=== PATIENT | female | born 1950 | race Caucasian/White ===

== ENCOUNTER 2020-12-10 10:19 | Emergency (ER) | payer MEDICARE, MEDICAID, SELFPAY ==
[2020-12-10 10:28] VITALS: BP 161/112; PULSE 80; RESP 20; TEMP 36.8; O2SAT 96
[2020-12-10 11:01] LABS: Hematocrit 45.8 % (37.0-47.0); Lymphocytes # 1.1 10^3/uL (0.8-4.8); Lymphocytes % 15.3 %; Mean Corpuscular HGB Conc 30.6 g/dL (30.0-36.0); Mean Corpuscular Hemoglobin 29.3 pg (28.0-34.0); Mean Corpuscular Volume 95.8 fL (81-99); Mean Platelet Volume 10.9 fL (7.4-10.4); Monocytes # 0.6 10^3/uL (0.2-0.9); Monocytes % 7.9 %; Neutrophils # 5.44 10^3/uL (1.8-7.7); Neutrophils % 76.4 %; Nucleated Red Blood Cells % 0 %; Platelet Count 203 10^3/cmm (130-400); Red Blood Count 4.78 10^6/uL (4.1-5.3); Red Cell Distribution Width 14.5 % (12.1-15.1); White Blood Count 7.1 10^3/uL (4.0-10.0)
--- NOTE | 2020-12-10 11:25 | ED_ITS ---
Documented by User: Paul Avila DO 12/11/20 09:13 HPI - Psych General: Chief Complaint: Psychiatric Symptoms Stated Complaint: SI, PSYCH EVAL Time Seen by Provider: 12/10/20 10:22 History of Present Illness: HPI Narrative: 69-year-old [facility] Nursing staff stated that she has been depressed and made suicidal ideation statements today. She denies any suicidal homicidal ideation. She is not happy with where she is living. She is extremely anxious. She has been very depressed she states she has been on several different medications recently was started on Effexor but does not feel has been very helpful. She has not previously had admissions for suicidal ideation. MD complaint: feels depressed Onset (ago): unknown Duration: constant History of same: Yes Relieving factors: none Exacerbating factors: none Associated psychiatric symptoms: depression Associated symptoms: Reports depression; Deny auditory hallucinations, visual hallucinations, delusions, homicidal ideation, suicidal ideation or racing thoughts Treatments prior to arrival: none Review of Systems Const: Denies: fever(s), chills, body aches, change in appetite, fatigue or malaise ENMT: Denies: throat pain, ear or mastoid pain, nasal discharge or nasal congestion Card: Denies: chest pain, edema, dyspnea on exertion or orthopnea Resp: Denies: dyspnea, productive cough or non-productive cough GI: Denies: abdominal pain, nausea, vomiting, hematemesis, coffee ground emesis, diarrhea, constipation, bloating, hematochezia or melena : Denies: flank pain, difficulty voiding, dysuria, urinary frequency or urinary urgency Skin/Breast: Denies: rash or pruritus Psych: Reports: depression; Denies: visual hallucinations, auditory hallucinations, suicidal ideation or homicidal ideation PFS ED PFSH: Family History Mother Hypertension Social History Smoking and tobacco status: never smoked Alcohol intake: never Marital status: Physical Exam Const: COMMON NORMALS: no acute distress GENERAL APPEARANCE: cooperative and comfortable HENMT: COMMON NORMALS: normocephalic, atraumatic and hearing grossly normal bilaterally HEAD & SCALP: normocephalic and atraumatic Neck/C-Spine: COMMON NORMALS: no JVD Resp: COMMON NORMALS: normal respiratory effort, No retractions, No use of accessory muscles and clear to auscultation bilaterally AUSCULTATION: clear to auscultation bilaterally Cardio: COMMON NORMALS: no JVD, regular rate, regular rhythm and No murmurs present (Cardio) RATE: regular rate RHYTHM: regular rhythm GI: COMMON NORMALS: Soft to palpation and No hepatosplenomegaly present AUSCULTATION: Yes normoactive bowel sounds PALPATION: Yes Soft to palpation, No Tenderness to palpation present (GI), No Guarding due to palpation present (GI) and Yes No hepatosplenomegaly present Extremity: COMMON NORMALS: normal to inspection, capillary refill normal and no calf tenderness Psych: THOUGHT CONTENT: No delusions Skin: COMMON NORMALS: no rashes or lesions noted GENERAL SKIN EXAM: no rashes or lesions noted Course Vital Signs: Vital signs: Vital Signs Temperature 98.3 F 12/10/20 10:28 Pulse Rate 84 12/10/20 21:31 Respiratory Rate 18 12/10/20 21:31 Blood Pressure 162/98 12/10/20 21:31 Pulse Oximetry 95 12/10/20 21:31 MDM - Psych MDM Narrative: Medical decision making narrative: Awaiting consult from on- call psychiatry. We tried multiple geriatric psych facilities are refusing because she is bedbound and full care. Dr. Gastelum will be coming down to see her and will discharge per his recommendations care turned over to Dr. Andrade at change of see his notes from diagnosis disposition Lab Data: Labs: Lab Results 12/10/20 12/10/20 12/10/20 Range/Units 10:55 10:55 11:35 WBC 7.1 (4.0-10.0) 10^3/ uL RBC 4.78 (4.1-5.3) 10^6/u L Hgb 14.0 (11.5-15.3) g/dL Hct 45.8 (37.0-47.0) % MCV 95.8 (81-99) fL MCH 29.3 (28.0-34.0) pg MCHC 30.6 (30.0-36.0) g/dL RDW 14.5 (12.1-15.1) % Plt Count 203 (130-400) 10^3/c mm MPV 10.9 H (7.4-10.4) fL Neut % (Auto) 76.4 % Lymph % (Auto) 15.3 % Haakon % (Auto) 7.9 % Eos % (Auto) 0.0 % Baso % (Auto) 0.0 % Neut # (Auto) 5.44 (1.8-7.7) 10^3/u L Lymph # (Auto) 1.1 (0.8-4.8) 10^3/u L Haakon # (Auto) 0.6 (0.2-0.9) 10^3/u L Eos # (Auto) 0.0 (0.0-0.8) 10^3/u L Baso # (Auto) 0.0 (0.0-0.1) 10^3/u L Nucleated RBC % (a uto) 0 % Nucleated RBCs # 0.0 /100WBC Sodium 143 (136-145) mmol/L Potassium 4.0 (3.5-5.1) mmol/L Chloride 105 (98-107) mmol/L Carbon Dioxide 27 (22-29) mmol/L Anion Gap 15.0 (5-19) BUN 12 (8-23) mg/dL Creatinine 0.7 (0.5-0.9) mg/dL GFR Calculation Not Reportable Glucose 138 H (65-115) mg/dL Calculated Osmolal ity 298 H (285-295) mOsm/k g Calcium 8.9 (8.5-10.5) mg/dL Total Bilirubin 0.4 (0.15-1.2) mg/dL AST 25 (0-32) U/L ALT 43 H (0-33) U/L Alkaline Phosphata se 149 H (35-105) IU/L Total Protein 6.8 (6.6-8.7) g/dL Albumin 4.1 (3.5-5.2) g/dL Globulin 2.7 (1.3-4.6) g/dL TSH 0.30 (0.27-4.20) uIU/ mL Urine Color Straw (Yellow) Urine Appearance Clear (CLEAR) Urine pH 6 (5-7) Ur Specific Gravit y 1.010 (1.005-1.030) Urine Protein Neg (Negative) Urine Glucose (UA) Norm (Normal) Urine Ketones Negative (Negative) Urine Blood Neg (Negative) Urine Nitrate Positive H (Negative) Urine Bilirubin Neg (Negative) Urine Urobilinogen Norm (Negative) mg/dL Ur Leukocyte Sonia ase Negative (Negative) Urine RBC None (0-2) /hpf Urine WBC 0-4 H (0-5) /hpf Ur Squamous Epith Cells None (0-5) /hpf Amorphous Sediment Not Reportable Urine Bacteria 4+ H (NONE) /hpf Salicylates < 0.3 L (3-10) mg/dL Urine Opiates Scre en (Negative) ng/mL Acetaminophen 5.9 L (10-30) ug/mL Ur Barbiturates Sc reen (Negative) ng/mL Ur Phencyclidine S crn (Negative) ng/mL Ur Amphetamines Sc reen (Negative) ng/mL U Benzodiazepines Scrn (Negative) ng/mL Urine Cocaine Scre en (Negative) ng/mL U Marijuana (THC) Screen (Negative) ng/mL Ethyl Alcohol < 10 (0-10) mg/dL SARS-CoV-2 Ag (Rap id) (Negative) 12/10/20 12/10/20 Range/Units 11:35 13:41 WBC (4.0-10.0) 10^3/ uL RBC (4.1-5.3) 10^6/u L Hgb (11.5-15.3) g/dL Hct (37.0-47.0) % MCV (81-99) fL MCH (28.0-34.0) pg MCHC (30.0-36.0) g/dL RDW (12.1-15.1) % Plt Count (130-400) 10^3/c mm MPV (7.4-10.4) fL Neut % (Auto) % Lymph % (Auto) % Haakon % (Auto) % Eos % (Auto) % Baso % (Auto) % Neut # (Auto) (1.8-7.7) 10^3/u L Lymph # (Auto) (0.8-4.8) 10^3/u L Haakon # (Auto) (0.2-0.9) 10^3/u L Eos # (Auto) (0.0-0.8) 10^3/u L Baso # (Auto) (0.0-0.1) 10^3/u L Nucleated RBC % (a uto) % Nucleated RBCs # /100WBC Sodium (136-145) mmol/L Potassium (3.5-5.1) mmol/L Chloride (98-107) mmol/L Carbon Dioxide (22-29) mmol/L Anion Gap (5-19) BUN (8-23) mg/dL Creatinine (0.5-0.9) mg/dL GFR Calculation Glucose (65-115) mg/dL Calculated Osmolal ity (285-295) mOsm/k g Calcium (8.5-10.5) mg/dL Total Bilirubin (0.15-1.2) mg/dL AST (0-32) U/L ALT (0-33) U/L Alkaline Phosphata se (35-105) IU/L Total Protein (6.6-8.7) g/dL Albumin (3.5-5.2) g/dL Globulin (1.3-4.6) g/dL TSH (0.27-4.20) uIU/ mL Urine Color (Yellow) Urine Appearance (CLEAR) Urine pH (5-7) Ur Specific Gravit y (1.005-1.030) Urine Protein (Negative) Urine Glucose (UA) (Normal) Urine Ketones (Negative) Urine Blood (Negative) Urine Nitrate (Negative) Urine Bilirubin (Negative) Urine Urobilinogen (Negative) mg/dL Ur Leukocyte Sonia ase (Negative) Urine RBC (0-2) /hpf Urine WBC (0-5) /hpf Ur Squamous Epith Cells (0-5) /hpf Amorphous Sediment Urine Bacteria (NONE) /hpf Salicylates (3-10) mg/dL Urine Opiates Scre en Negative (Negative) ng/mL Acetaminophen (10-30) ug/mL Ur Barbiturates Sc reen Negative (Negative) ng/mL Ur Phencyclidine S crn Negative (Negative) ng/mL Ur Amphetamines Sc reen Negative (Negative) ng/mL U Benzodiazepines Scrn Negative (Negative) ng/mL Urine Cocaine Scre en Negative (Negative) ng/mL U Marijuana (THC) Screen Negative (Negative) ng/mL Ethyl Alcohol (0-10) mg/dL SARS-CoV-2 Ag (Rap id) Negative (Negative) Discharge Plan Discharge Patient Disposition: Home Clinical Impression: Depression Qualifiers: Depression Type: unspecified Qualified Code(s): F32.9 - Major depressive disorder, single episode, unspecified Acute cystitis Qualifiers: Hematuria presence: without hematuria Qualified Code(s): N30.00 - Acute cystitis without hematuria Condition: Stable Prescriptions: New Remeron 15 mg tablet 15 mg PO DAILY Qty: 60 RF: 0 cephalexin 500 mg capsule 500 mg PO TID 7 Days Qty: 21 RF: 0 Discontinued risperidone 1 mg Tablet 1 mg PO BEDTIME RF: 0 No Action Lasix 40 mg Tablet 40 mg PO DAILY RF: 0 acetaminophen 325 mg Tablet 325 mg PO Q4H PRN (Reason: Pain) RF: 0 triamcinolone acetonide 0.5 % Cream 1 applic TOPICAL BID PRN (Reason: redness) RF: 0 nystatin 100,000 unit/gram Ointment 1 applic TOPICAL Q4H PRN (Reason: redness) RF: 0 Zofran 4 mg Tablet 4 mg PO Q8H PRN (Reason: Nausea) RF: 0 Senna-S 8.6-50 mg Tablet 1 tab-cap PO BID PRN (Reason: Constipation) RF: 0 Effexor XR 150 mg Capsule,Extended Release 24hr 300 mg PO DAILY RF: 0 tramadol 50 mg Tablet 50 mg PO TID PRN (Reason: Pain) RF: 0 Milk of Magnesia 400 mg/5 mL Suspension 30 ml PO DAILY PRN (Reason: Constipation) RF: 0 calcium carbonate 160 mg calcium (400 mg) Tablet,Chewable 320 mg PO Q4H PRN (Reason: Indigestion) RF: 0 docusate sodium 100 mg Capsule 100 mg PO BID RF: 0 Colace 100 mg Capsule 100 mg PO BID PRN (Reason: Constipation) RF: 0 gabapentin 300 mg Capsule 300 mg PO TID RF: 0 levothyroxine 200 mcg Tablet 200 mcg PO DAILY RF: 0 Miralax 17 gram/dose Powder 17 g PO BID RF: 0 loratadine 10 mg Tablet 10 mg PO DAILY RF: 0 Artificial Tears (glycerin) Drops 1 drp OPHTHALMIC (EYE) Q4H PRN (Reason: Eye Irritation) RF: 0 Biofreeze 0.2-3.5 % Gel 1 applic TOPICAL Q8H PRN (Reason: Pain) RF: 0 potassium chloride 20 mEq Tablet Extended Release 20 meq PO DAILY RF: 0 Discharge Orders: Discharge ED (Routine); Ordered 12/10/20 Ordered By: Everett Andrade Discharge Diet: Advance as tolerated Discharge Activity: Resume usual activity Patient Instructions: Depression (ED) Coding Level of Care Code ED Integration Lead for Chg Fwd Exam Comprehensive Documented by User: Everett Andrade MD 12/10/20 20:43 HPI - Psych General: Chief Complaint: Psychiatric Symptoms Stated Complaint: SI, PSYCH EVAL Time Seen by Provider: 12/10/20 10:22 PFSH ED PFSH: Family History Mother Hypertension Social History Smoking and tobacco status: never smoked Alcohol intake: never Marital status: Course Vital Signs: Vital signs: Vital Signs Temperature 98.3 F 12/10/20 10:28 Pulse Rate 84 12/10/20 21:31 Respiratory Rate 18 12/10/20 21:31 Blood Pressure 162/98 12/10/20 21:31 Pulse Oximetry 95 12/10/20 21:31 MDM - Psych MDM Narrative: Medical decision making narrative: Patient presents here with depression. Patient was seen by psychiatrist Dr. Gastelum he does not believe that patient requires inpatient admissions and believe she is safe for discharge. I agree with this as well. He recommended to add Remeron and stop her Risperdal. Patient also has urinary tract infection we will place her on Keflex. She is to follow-up with PCP and will [facility] back to [facility]. She is to return if worsening. Lab Data: Labs: Lab Results 12/10/20 12/10/20 12/10/20 Range/Units 10:55 10:55 11:35 WBC 7.1 (4.0-10.0) 10^3/ uL RBC 4.78 (4.1-5.3) 10^6/u L Hgb 14.0 (11.5-15.3) g/dL Hct 45.8 (37.0-47.0) % MCV 95.8 (81-99) fL MCH 29.3 (28.0-34.0) pg MCHC 30.6 (30.0-36.0) g/dL RDW 14.5 (12.1-15.1) % Plt Count 203 (130-400) 10^3/c mm MPV 10.9 H (7.4-10.4) fL Neut % (Auto) 76.4 % Lymph % (Auto) 15.3 % Haakon % (Auto) 7.9 % Eos % (Auto) 0.0 % Baso % (Auto) 0.0 % Neut # (Auto) 5.44 (1.8-7.7) 10^3/u L Lymph # (Auto) 1.1 (0.8-4.8) 10^3/u L Haakon # (Auto) 0.6 (0.2-0.9) 10^3/u L Eos # (Auto) 0.0 (0.0-0.8) 10^3/u L Baso # (Auto) 0.0 (0.0-0.1) 10^3/u L Nucleated RBC % (a uto) 0 % Nucleated RBCs # 0.0 /100WBC Sodium 143 (136-145) mmol/L Potassium 4.0 (3.5-5.1) mmol/L Chloride 105 (98-107) mmol/L Carbon Dioxide 27 (22-29) mmol/L Anion Gap 15.0 (5-19) BUN 12 (8-23) mg/dL Creatinine 0.7 (0.5-0.9) mg/dL GFR Calculation Not Reportable Glucose 138 H (65-115) mg/dL Calculated Osmolal ity 298 H (285-295) mOsm/k g Calcium 8.9 (8.5-10.5) mg/dL Total Bilirubin 0.4 (0.15-1.2) mg/dL AST 25 (0-32) U/L ALT 43 H (0-33) U/L Alkaline Phosphata se 149 H (35-105) IU/L Total Protein 6.8 (6.6-8.7) g/dL Albumin 4.1 (3.5-5.2) g/dL Globulin 2.7 (1.3-4.6) g/dL TSH 0.30 (0.27-4.20) uIU/ mL Urine Color Straw (Yellow) Urine Appearance Clear (CLEAR) Urine pH 6 (5-7) Ur Specific Gravit y 1.010 (1.005-1.030) Urine Protein Neg (Negative) Urine Glucose (UA) Norm (Normal) Urine Ketones Negative (Negative) Urine Blood Neg (Negative) Urine Nitrate Positive H (Negative) Urine Bilirubin Neg (Negative) Urine Urobilinogen Norm (Negative) mg/dL Ur Leukocyte Sonia ase Negative (Negative) Urine RBC None (0-2) /hpf Urine WBC 0-4 H (0-5) /hpf Ur Squamous Epith Cells None (0-5) /hpf Amorphous Sediment Not Reportable Urine Bacteria 4+ H (NONE) /hpf Salicylates < 0.3 L (3-10) mg/dL Urine Opiates Scre en (Negative) ng/mL Acetaminophen 5.9 L (10-30) ug/mL Ur Barbiturates Sc reen (Negative) ng/mL Ur Phencyclidine S crn (Negative) ng/mL Ur Amphetamines Sc reen (Negative) ng/mL U Benzodiazepines Scrn (Negative) ng/mL Urine Cocaine Scre en (Negative) ng/mL U Marijuana (THC) Screen (Negative) ng/mL Ethyl Alcohol < 10 (0-10) mg/dL SARS-CoV-2 Ag (Rap id) (Negative) 12/10/20 12/10/20 Range/Units 11:35 13:41 WBC (4.0-10.0) 10^3/ uL RBC (4.1-5.3) 10^6/u L Hgb (11.5-15.3) g/dL Hct (37.0-47.0) % MCV (81-99) fL MCH (28.0-34.0) pg MCHC (30.0-36.0) g/dL RDW (12.1-15.1) % Plt Count (130-400) 10^3/c mm MPV (7.4-10.4) fL Neut % (Auto) % Lymph % (Auto) % Haakon % (Auto) % Eos % (Auto) % Baso % (Auto) % Neut # (Auto) (1.8-7.7) 10^3/u L Lymph # (Auto) (0.8-4.8) 10^3/u L Haakon # (Auto) (0.2-0.9) 10^3/u L Eos # (Auto) (0.0-0.8) 10^3/u L Baso # (Auto) (0.0-0.1) 10^3/u L Nucleated RBC % (a uto) % Nucleated RBCs # /100WBC Sodium (136-145) mmol/L Potassium (3.5-5.1) mmol/L Chloride (98-107) mmol/L Carbon Dioxide (22-29) mmol/L Anion Gap (5-19) BUN (8-23) mg/dL Creatinine (0.5-0.9) mg/dL GFR Calculation Glucose (65-115) mg/dL Calculated Osmolal ity (285-295) mOsm/k g Calcium (8.5-10.5) mg/dL Total Bilirubin (0.15-1.2) mg/dL AST (0-32) U/L ALT (0-33) U/L Alkaline Phosphata se (35-105) IU/L Total Protein (6.6-8.7) g/dL Albumin (3.5-5.2) g/dL Globulin (1.3-4.6) g/dL TSH (0.27-4.20) uIU/ mL Urine Color (Yellow) Urine Appearance (CLEAR) Urine pH (5-7) Ur Specific Gravit y (1.005-1.030) Urine Protein (Negative) Urine Glucose (UA) (Normal) Urine Ketones (Negative) Urine Blood (Negative) Urine Nitrate (Negative) Urine Bilirubin (Negative) Urine Urobilinogen (Negative) mg/dL Ur Leukocyte Sonia ase (Negative) Urine RBC (0-2) /hpf Urine WBC (0-5) /hpf Ur Squamous Epith Cells (0-5) /hpf Amorphous Sediment Urine Bacteria (NONE) /hpf Salicylates (3-10) mg/dL Urine Opiates Scre en Negative (Negative) ng/mL Acetaminophen (10-30) ug/mL Ur Barbiturates Sc reen Negative (Negative) ng/mL Ur Phencyclidine S crn Negative (Negative) ng/mL Ur Amphetamines Sc reen Negative (Negative) ng/mL U Benzodiazepines Scrn Negative (Negative) ng/mL Urine Cocaine Scre en Negative (Negative) ng/mL U Marijuana (THC) Screen Negative (Negative) ng/mL Ethyl Alcohol (0-10) mg/dL SARS-CoV-2 Ag (Rap id) Negative (Negative) Discharge Plan Discharge Patient Disposition: Home Clinical Impression: Depression Qualifiers: Depression Type: unspecified Qualified Code(s): F32.9 - Major depressive disorder, single episode, unspecified Acute cystitis Qualifiers: Hematuria presence: without hematuria Qualified Code(s): N30.00 - Acute cystitis without hematuria Condition: Stable Prescriptions: New Remeron 15 mg tablet 15 mg PO DAILY Qty: 60 RF: 0 cephalexin 500 mg capsule 500 mg PO TID 7 Days Qty: 21 RF: 0 Discontinued risperidone 1 mg Tablet 1 mg PO BEDTIME RF: 0 No Action Lasix 40 mg Tablet 40 mg PO DAILY RF: 0 acetaminophen 325 mg Tablet 325 mg PO Q4H PRN (Reason: Pain) RF: 0 triamcinolone acetonide 0.5 % Cream 1 applic TOPICAL BID PRN (Reason: redness) RF: 0 nystatin 100,000 unit/gram Ointment 1 applic TOPICAL Q4H PRN (Reason: redness) RF: 0 Zofran 4 mg Tablet 4 mg PO Q8H PRN (Reason: Nausea) RF: 0 Senna-S 8.6-50 mg Tablet 1 tab-cap PO BID PRN (Reason: Constipation) RF: 0 Effexor XR 150 mg Capsule,Extended Release 24hr 300 mg PO DAILY RF: 0 tramadol 50 mg Tablet 50 mg PO TID PRN (Reason: Pain) RF: 0 Milk of Magnesia 400 mg/5 mL Suspension 30 ml PO DAILY PRN (Reason: Constipation) RF: 0 calcium carbonate 160 mg calcium (400 mg) Tablet,Chewable 320 mg PO Q4H PRN (Reason: Indigestion) RF: 0 docusate sodium 100 mg Capsule 100 mg PO BID RF: 0 Colace 100 mg Capsule 100 mg PO BID PRN (Reason: Constipation) RF: 0 gabapentin 300 mg Capsule 300 mg PO TID RF: 0 levothyroxine 200 mcg Tablet 200 mcg PO DAILY RF: 0 Miralax 17 gram/dose Powder 17 g PO BID RF: 0 loratadine 10 mg Tablet 10 mg PO DAILY RF: 0 Artificial Tears (glycerin) Drops 1 drp OPHTHALMIC (EYE) Q4H PRN (Reason: Eye Irritation) RF: 0 Biofreeze 0.2-3.5 % Gel 1 applic TOPICAL Q8H PRN (Reason: Pain) RF: 0 potassium chloride 20 mEq Tablet Extended Release 20 meq PO DAILY RF: 0 Discharge Orders: Discharge ED (Routine); Ordered 12/10/20 Ordered By: Everett Andrade Discharge Diet: Advance as tolerated Discharge Activity: Resume usual activity Patient Instructions: Depression (ED) Coding Level of Care Code ED Integration Lead for Consuelo Fwandrey Exam Comprehensive
[2020-12-10 11:34] LABS: Acetaminophen 5.9 ug/mL (10-30); Alanine Aminotransferase 43 U/L (0-33); Albumin Level 4.1 g/dL (3.5-5.2); Alkaline Phosphatase 149 IU/L (35-105); Blood Urea Nitrogen 12 mg/dL (8-23); Calcium 8.9 mg/dL (8.5-10.5); Carbon Dioxide 27 mmol/L (22-29); Chloride 105 mmol/L (98-107); Globulin 2.7 g/dL (1.3-4.6); Glucose 138 mg/dL (65-115); Osmolality Calculated 298 mOsm/kg (285-295); Sodium 143 mmol/L (136-145); Total Bilirubin 0.4 mg/dL (0.15-1.2); Total Protein 6.8 g/dL (6.6-8.7)
[2020-12-10] MEDS: LORazepam 2 mg/mL INJ 1 mL 1 MG IVP (11:36)
[2020-12-10 11:38] LABS: Alcohol Level < 10 mg/dL (0-10); Salicylate < 0.3 mg/dL (3-10)
[2020-12-10 11:39] LABS: Aspartate Amino Transferase 25 U/L (0-32)
[2020-12-10 12:03] LABS: Add Urine Microscopic? YES; Bilirubin Urine Neg (Negative); Blood Urine Neg (Negative); Glucose Urine UA Norm (Normal); Ketones Urine Negative (Negative); Leukocyte Esterase Urine Negative (Negative); Nitrate Urine Positive (Negative); Protein Urine Neg (Negative); Urine Appearance Clear (CLEAR); Urine Color Straw (Yellow); Urobilinogen Urine Norm (Negative); WBC Urine 0-4 /hpf (0-5); pH Urine 6 (5-7)
[2020-12-10 12:04] LABS: Add Urine Culture? Yes; Bacteria Urine 4+ /hpf
[2020-12-10 12:07] LABS: Amphetamines Screen Urine Negative (Negative); Barbiturates Screen Urine Negative (Negative); Benzodiazepines Screen Urine Negative (Negative); Cocaine Screen Urine Negative (Negative); Opiate Screen Urine Negative (Negative); PCP Screen Urine Negative (Negative); THC Screen Urine Negative (Negative)
[2020-12-10 13:02] VITALS: RESP 15
--- NOTE | 2020-12-10 13:13 | ECG_ITS ---
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 Measurements Intervals [place] Rate: 74 P: 47 TN: 183 QRS: 27 QRSD: 89 T: 54 QT: 386 QTc: 429 Interpretive Statements SINUS RHYTHM Compared to ECG 03/27/2019 19:21:34 Intraventricular conduction delay no longer present T-wave abnormality no longer present Electronically Signed On 12-13-2020 9:55:02 CDT by Janet Powers M.D. [id number]
--- NOTE | 2020-12-10 13:14 | XRR_ITS ---
PROCEDURE INFORMATION: Exam: XR Chest Exam date and time: 12/10/2020 1:14 PM Age: 69 years old Clinical indication: Cough and dyspnea; Additional info: Dyspnea/cough TECHNIQUE: Imaging protocol: XR of the chest. Views: 1 view. COMPARISON: CR Chest 1 [place] [id number] 03/27/2019 7:32 PM FINDINGS: Lungs: Interstitial prominence and chronic granulomatous disease. Pleural spaces: No significant pleural effusion. Heart/Mediastinum: No cardiomegaly. Vasculature: Ectasia of the thoracic aorta. Bones/joints: Osteopenia and degenerative change. When correlating with the previous study, no significant interval changes are present. XR/XR chest 1V portable [id number] IMPRESSION: Stable appearance of the chest, not significantly changed from 03/27/19.
[2020-12-10 14:34] LABS: SARS Covid-2 Antigen Negative (Negative)
[2020-12-10 16:19] VITALS: RESP 15
[2020-12-10 16:34] VITALS: BP 178/124; PULSE 88; RESP 18; O2SAT 95
[2020-12-10] MEDS: acetaminophen 500 mg Tablet 1000 MG PO (17:32)
[2020-12-10] MEDS: LORazepam 2 mg/mL INJ 1 mL 1 MG IM (18:42)
--- NOTE | 2020-12-10 19:07 | PC.NURSE ---
Report from DUSTY Campo
[2020-12-10 20:32] VITALS: BP 160/94; PULSE 85; RESP 18; O2SAT 93
[2020-12-10 21:31] VITALS: BP 162/98; PULSE 84; RESP 18; O2SAT 95
--- NOTE | 2020-12-11 00:34 | P.CONIM_ITS ---
Providers/Reason for Consult Consulting Physican/Specialty*: Lane Gastelum MD, psychiatry Reason for Consult*: Depression, disposition Psych Consult HPI History of Present Illness Fely Matta is a 69 year old female who presented to the [facility] ED with complaints of depression and suicidal ideation. The ED note states: 69-year-old female [facility]. Nursing staff stated that she has been depressed and made suicidal ideation statements today. She denies any suicidal homicidal ideation. She is not happy with where she is living. She is extremely anxious. She has been very depressed she states she has been on several different medications recently was started on Effexor but does not feel has been very helpful. She has not previously had admissions for suicidal ideation. The patient agrees that she has been depressed in the past, but does not feel so depressed now or into the future. She feels she can be safe at the nursing facility. She has no urges to kill her self or anyone else. She is able to contract to stay safe. PFS NPU PFSH: Surgical History (Updated 12/22/20 @ 00:[address]astelum MD) Status post total left knee replacement Family History Mother Hypertension Social History Smoking and tobacco status: never smoked Alcohol intake: never Marital status: Mental Status Exam MSE Comments: This pleasant lady has been suffering with depression, and wonders who will provide her care. Currently the nursing facility provides 24/7 support. She is calm, cooperative, alert, attentive, and in a pretty good mood. Speech is at a regular rate and rhythm without pressure. No abnormal movements noted. Mood is down, but improved; her yells frequently. No problems with thought organization. Insight and judgment are limited by drug use. Vitals/I&O/Wt Last Vital Signs Temp 98.3 F 12/10/20 10:28 Pulse 84 12/10/20 21:31 Resp 18 12/10/20 21:31 BP 162/98 12/10/20 21:31 Pulse Ox 95 12/10/20 21:31 Physical Exam Urinary Catheter Management^: Vanegas: Cath Placed During This Visit: yes Urinary Catheter Date of Insertion: 12/10/20 Urinary Catheter Time of Insertion: 11:43 A&P Assessment and plan (1) Major depression, recurrent, chronic: Status: Acute (2) Methamphetamine abuse: Status: Acute Additional A&P Information No additional information at this time? Attestations NPU Medical Necessity Statement*: Hospitalist will complete the medical necessity evaluation. Coding Level of Care Code Acute Tack Maker for Consuelo Tobin Diagnoses Major depression, recurrent, chronic F33.9 Methamphetamine abuse F15.10
== END 2020-12-10 21:55 | disposition home or self-care (01) ==
PROVIDERS: Family Medicine; Emergency Provider Emergency Medicine
DX: F32.9 Major depressive disorder, single episode, unspecified (principal); N30.00 Acute cystitis without hematuria; Z20.822 Contact with and (suspected) exposure to COVID-19
CPT/HCPCS: 51702; 71045; 80053; 80306; 80307; 81001; 84443; 85025; 87077; 87086; 87186; 87426; 93005; 96365; 96372; 96375; 99284; J2060

== ENCOUNTER 2021-02-01 20:21 | Emergency (ER) | payer MEDICARE, MEDICAID, SELFPAY ==
[2021-02-01 20:28] VITALS: BP 156/95; PULSE 81; RESP 20; TEMP 36.9; O2SAT 95; BMI 56.7
--- NOTE | 2021-02-01 20:36 | CTR_ITS ---
PROCEDURE INFORMATION: Exam: CT Abdomen And Pelvis With Contrast Exam date and time: 02/01/2021 8:36 PM Age: 70 years old Clinical indication: Constipation and nausea; Abdominal pain; Generalized; Prior surgery; Surgery type: Tubal; Additional info: Rule out infection TECHNIQUE: Imaging protocol: Computed tomography of the abdomen and pelvis with contrast. Radiation optimization: All CT scans at this facility use at least one of these dose optimization techniques: automated exposure control; mA and/or kV adjustment per patient size (includes targeted exams where dose is matched to clinical indication); or iterative reconstruction. Contrast material: OMNI 300; Contrast volume: 95 ml; Contrast route: INTRAVENOUS (IV); COMPARISON: CT abdomen pelvis w con* [id number] 05/23/2018 3:13 PM RADIATION DOSE METRICS: Total DLP (mGy-cm): 1804.42 FINDINGS: Lungs: Mild atelectasis. Liver: Small calcified granulomas in the liver. Gallbladder and bile ducts: Normal. No calcified stones. No ductal dilation. Pancreas: Normal. No ductal dilation. Spleen: Calcified granulomas in the spleen. Adrenal glands: Normal. No mass. Kidneys and ureters: Fluid density cyst in the left kidney, Hounsfield units less than 20. Small lesions in both kidneys are too small to characterize but are also likely cysts. No follow-up imaging is recommended. No calculus or hydronephrosis. Stomach and bowel: Multiple small duodenal diverticula. The remainder of the stomach, small bowel, and colon are unremarkable. Appendix: The appendix is visualized and is normal. Intraperitoneal space: Unremarkable. No free air. No significant fluid collection. Vasculature: Unremarkable. No abdominal aortic aneurysm. Lymph nodes: Unremarkable. No enlarged lymph nodes. Urinary bladder: Vanegas catheter in a decompressed urinary bladder. Reproductive: Unremarkable as visualized. Bones/joints: Mild L1 compression fracture, new since the prior study. Degenerative changes of the lumbar spine. Soft tissues: Mild soft tissue edema in the flank and buttock regions. CT/CT abdomen pelvis w con* [id number] IMPRESSION: 1. No acute abnormality identified in the abdomen or pelvis. 2. Mild L1 compression fracture. This is age indeterminate but newly acquired since 05/23/2018. COMMENTS: Consistent with the [employer] [place]'s Incidental Findings Committee white paper (J Am Aleena Radiol 2018): Any incidental renal lesion less than 1 cm or classified as too small to characterize, or any incidental cystic renal lesion characterized as simple-appearing, is likely benign. No follow-up imaging is recommended for these lesions per consensus recommendations based on imaging criteria. Radiation Dose CTDIVOL = (mGy): DLP = 1804.42 (mGy-cm)
--- NOTE | 2021-02-01 21:02 | W.ED.GENADLT ---
Documented by User: Sanjay Ball MD 02/05/21 05:31 HPI - General Adult General: Chief complaint: Abdominal Pain Stated complaint: NAUSEA/ ABDOMINAL PAIN/ CONSTIPATED Time Seen by Provider: 02/01/21 20:23 History of Present Illness: HPI narrative: 70-year-old female with a history of UTI prior history of SI who presents the emergency room with complaints of diffuse abdominal pain, nausea and vomiting and decreased stooling for 3 weeks. Patient says that she has been unable to stool. She does not want to take her laxative because it does not taste good. In addition, patient has significant nausea taking laxative. Patient says that she has had decreased p.o. intake including liquids. Earlier today, patient noticed symptoms of dysuria. Otherwise no fever no chills, pain is worse in the left lower quadrant. Patient denies any melena or hematochezia, chest pain or shortness of breath. No other focal complaints today. Onset:3 weeks ago Duration:3 weeks Location:home Severity:mild Review of Systems Narrative: Constitutional: No fever, no chills. HEENT: No vision changes CV: No chest pain, no palpitations PULM: no cough, no dyspnea. GI: +LLQ abdominal pain, +N/+V/-D, +decreased stooling : No dysuria MSKEL: No muscle pain SKIN: No new rashes, no lesions. NEURO: No headache, no focal weakness. HEME: No visible bruises PSYCH: Normal mood PFSH ED PFSH: Surgical History (Updated 12/22/20 @ 00:[address]astelum MD) Status post total left knee replacement Family History Mother Hypertension Social History Smoking and tobacco status: never smoked Alcohol intake: never Marital status: Female Reproductive History: Date of last menstrual period: 08/02/20 Physical Exam Narrative: EXAM NARRATIVE: Head: Atraumatic Eyes: PERRL, conjunctiva without injection ENT: Mucous membrane moist NECK: Supple, ROM intact LUNGS: +Mild wheezing b/l CV: RRR ABDOMEN: Soft, mild LLQ TTP and suprapubic TTP. NO guarding rebound, guarding, rigidity. No CVA tenderness to percussion. Neg Escobedo/Neg McBurney's point tenderness. EXTREMITY: Normal ROM SKIN: No rash or erythema NEURO: Awake and alert, no focal motor deficits PSYCH: Normal mood and affect Course Vital Signs: Vital signs: Vital Signs Temperature 98.5 F 02/01/21 20:28 Pulse Rate 104 H 02/02/21 02:51 Respiratory Rate 20 H 02/02/21 02:51 Blood Pressure 152/87 02/02/21 02:51 Pulse Oximetry 95 02/02/21 02:51 MDM - General Adult MDM Narrative: Medical decision making narrative: 70-year-old female presents emergency room with complaints of abdominal pain, nausea/vomiting, and decreased stooling. On exam, patient is HDS, with mild wheezing bilaterally and left lower quadrant tenderness to palpation. Will work-up for constipation and abdominal pain clean blood work, urine, and CT abdomen pelvis. She declined DuoNeb at this time for wheezing and Xray chest. Case signed out to Dr. Yeager. Lab Data: Labs: Lab Results 02/01/21 02/01/21 02/01/21 21:00 21:00 21:00 WBC 8.2 10^3/uL 10^3/ uL (4.0-10.0) RBC 5.01 10^6/uL 10^6 /uL (4.1-5.3) Hgb 14.8 g/dL g/dL (11.5-15.3) Hct 46.8 % % (37.0-47.0) MCV 93.4 fl fl (81-99) MCH 29.5 pg pg (28.0-34.0) MCHC 31.6 g/dL g/dL (30.0-36.0) RDW 14.6 % % (12.1-15.1) Plt Count 257 10^3/cmm 10^3 /cmm (130-400) MPV 11.7 fL H fL (7.4-10.4) Neut % (Auto) 71.9 % % Lymph % (Auto) 17.9 % % [place] % (Auto) 9.5 % % Eos % (Auto) 0.0 % % Baso % (Auto) 0.1 % % Neut # (Auto) 5.92 10^3/uL 10^3 /uL (1.8-7.7) Lymph # (Auto) 1.5 10^3/uL 10^3/ uL (0.8-4.8) [place] # (Auto) 0.8 10^3/uL 10^3/ uL (0.2-0.9) Eos # (Auto) 0.0 10^3/uL 10^3/ uL (0.0-0.8) Baso # (Auto) 0.0 10^3/uL 10^3/ uL (0.0-0.1) Nucleated RBC % (a uto) 0 % % Nucleated RBCs # 0.0 /100WBC /100W BC Sodium Cancelled Potassium Cancelled Chloride Cancelled Carbon Dioxide Cancelled Anion Gap Cancelled BUN Cancelled Creatinine Cancelled GFR Calculation Cancelled Glucose Cancelled Calculated Osmolal ity Cancelled Lactate 1.2 mmol/L mmol/L (0.5-2.2) Calcium Cancelled Total Bilirubin Cancelled AST Cancelled ALT Cancelled Alkaline Phosphata se Cancelled Total Protein Cancelled Albumin Cancelled Globulin Cancelled Lipase Cancelled Urine Color Urine Appearance Urine pH Ur Specific Gravit y Urine Protein Urine Glucose (UA) Urine Ketones Urine Blood Urine Nitrate Urine Bilirubin Urine Urobilinogen Ur Leukocyte Sonia ase Urine RBC Urine WBC Ur Squamous Epith Cells Calcium Oxalate Cr ystal Amorphous Sediment Urine Bacteria 02/01/21 02/01/21 21:43 22:45 WBC RBC Hgb Hct MCV MCH MCHC RDW Plt Count MPV Neut % (Auto) Lymph % (Auto) [place] % (Auto) Eos % (Auto) Baso % (Auto) Neut # (Auto) Lymph # (Auto) [place] # (Auto) Eos # (Auto) Baso # (Auto) Nucleated RBC % (a uto) Nucleated RBCs # Sodium 142 mmol/L mmol/L (136-145) Potassium 3.6 mmol/L mmol/L (3.5-5.1) Chloride 105 mmol/L mmol/L (98-107) Carbon Dioxide 27 mmol/L mmol/L (22-29) Anion Gap 13.6 (5-19) BUN 11 mg/dL mg/dL (8-23) Creatinine 0.6 mg/dL mg/dL (0.5-0.9) GFR Calculation Not Reportable Glucose 105 mg/dL mg/dL (65-115) Calculated Osmolal ity 294 mOsm/kg mOsm/ kg (285-295) Lactate Calcium 9.5 mg/dL mg/dL (8.5-10.5) Total Bilirubin 0.7 mg/dL mg/dL (0.15-1.2) AST 22 U/L U/L (0-32) ALT 32 U/L U/L (0-33) Alkaline Phosphata se 138 IU/L H IU/L (35-105) Total Protein 7.1 g/dL g/dL (6.6-8.7) Albumin 3.7 g/dL g/dL (3.5-5.2) Globulin 3.4 g/dL g/dL (1.3-4.6) Lipase 28 U/L U/L (13-60) Urine Color Yellow (Yellow) Urine Appearance Sl cloudy A (CLEAR) Urine pH 7 (5-7) Ur Specific Gravit y 1.015 (1.005-1.030) Urine Protein Neg (Negative) Urine Glucose (UA) Norm (Normal) Urine Ketones Negative (Negative) Urine Blood Neg (Negative) Urine Nitrate Positive H (Negative) Urine Bilirubin 1+ H (Negative) Urine Urobilinogen 8 mg/dL H mg/dL (Negative) Ur Leukocyte Sonia ase Trace H (Negative) Urine RBC 0-4 /hpf H /hpf (0-2) Urine WBC 25-40 /hpf H /hpf (0-5) Ur Squamous Epith Cells 0-4 /hpf H /hpf (0-5) Calcium Oxalate Cr ystal 0-4 /hpf H /hpf Amorphous Sediment 3+ /hpf /hpf Urine Bacteria 4+ /hpf H /hpf (NONE) Discharge Plan Discharge Patient Disposition: Home Clinical Impression: Constipation, Acute UTI Condition: Stable Prescriptions: New cephalexin 500 mg capsule 500 mg PO BID 5 Days Qty: 10 RF: 0 No Action Lasix 40 mg Tablet 40 mg PO DAILY RF: 0 acetaminophen 325 mg Tablet 325 mg PO Q4H PRN (Reason: Pain) RF: 0 triamcinolone acetonide 0.5 % Cream 1 applic TOPICAL BID PRN (Reason: redness) RF: 0 nystatin 100,000 unit/gram Ointment 1 applic TOPICAL Q4H PRN (Reason: redness) RF: 0 Zofran 4 mg Tablet 4 mg PO Q8H PRN (Reason: Nausea) RF: 0 Senna-S 8.6-50 mg Tablet 1 tab-cap PO BID PRN (Reason: Constipation) RF: 0 Effexor XR 150 mg Capsule,Extended Release 24hr 300 mg PO DAILY RF: 0 tramadol 50 mg Tablet 50 mg PO TID PRN (Reason: Pain) RF: 0 Milk of Magnesia 400 mg/5 mL Suspension 30 ml PO DAILY PRN (Reason: Constipation) RF: 0 calcium carbonate 160 mg calcium (400 mg) Tablet,Chewable 320 mg PO Q4H PRN (Reason: Indigestion) RF: 0 docusate sodium 100 mg Capsule 100 mg PO BID RF: 0 Colace 100 mg Capsule 100 mg PO BID PRN (Reason: Constipation) RF: 0 gabapentin 300 mg Capsule 300 mg PO TID RF: 0 levothyroxine 200 mcg Tablet 200 mcg PO DAILY RF: 0 Miralax 17 gram/dose Powder 17 g PO BID RF: 0 loratadine 10 mg Tablet 10 mg PO DAILY RF: 0 Artificial Tears (glycerin) Drops 1 drp OPHTHALMIC (EYE) Q4H PRN (Reason: Eye Irritation) RF: 0 Biofreeze 0.2-3.5 % Gel 1 applic TOPICAL Q8H PRN (Reason: Pain) RF: 0 potassium chloride 20 mEq Tablet Extended Release 20 meq PO DAILY RF: 0 Remeron 15 mg tablet 15 mg PO DAILY Qty: 60 RF: 0 Discharge Orders: Discharge ED (Routine); Ordered 02/02/21 Ordered By: Eric Yeager Patient Instructions: Constipation (ED), Urinary Tract Infection in Women (ED) Activity Restrictions/Additional Instructions: Antibiotics as prescribed and directed for urinary tract infection. Laxative for constipation. Drink plenty of liquids for the next 24 hours. Return for fever greater than 100, vomiting liquids or medications, other concerning symptoms. Coding Level of Care Code ED Application Spec for Chg Fwd Documented by User: Eric Yeager, 02/02/21 01:22 HPI - General Adult General: Chief complaint: Abdominal Pain Stated complaint: NAUSEA/ ABDOMINAL PAIN/ CONSTIPATED Time Seen by Provider: 02/01/21 20:23 [facility] ED PFSH: Surgical History (Updated 12/22/20 @ 00:[address]astelum MD) Status post total left knee replacement Family History Mother Hypertension Social History Smoking and tobacco status: never smoked Alcohol intake: never Marital status: Course Vital Signs: Vital signs: Vital Signs Temperature 98.5 F 02/01/21 20:28 Pulse Rate 104 H 02/02/21 02:51 Respiratory Rate 20 H 02/02/21 02:51 Blood Pressure 152/87 02/02/21 02:51 Pulse Oximetry 95 02/02/21 02:51 MDM - General Adult MDM Narrative: Medical decision making narrative: 70-year-old fdc patient checked out to me by Dr. Ball at shift change. This lady has a urinary tract infection on cath urine. Her white blood cell count is 8.2. Her labs are essentially normal otherwise. Her CT is nonacute she will be treated for urinary tract infection and constipation. Lab Data: Labs: Lab Results 02/01/21 02/01/21 02/01/21 21:00 21:00 21:00 WBC 8.2 10^3/uL 10^3/ uL (4.0-10.0) RBC 5.01 10^6/uL 10^6 /uL (4.1-5.3) Hgb 14.8 g/dL g/dL (11.5-15.3) Hct 46.8 % % (37.0-47.0) MCV 93.4 fl fl (81-99) MCH 29.5 pg pg (28.0-34.0) MCHC 31.6 g/dL g/dL (30.0-36.0) RDW 14.6 % % (12.1-15.1) Plt Count 257 10^3/cmm 10^3 /cmm (130-400) MPV 11.7 fL H fL (7.4-10.4) Neut % (Auto) 71.9 % % Lymph % (Auto) 17.9 % % [place] % (Auto) 9.5 % % Eos % (Auto) 0.0 % % Baso % (Auto) 0.1 % % Neut # (Auto) 5.92 10^3/uL 10^3 /uL (1.8-7.7) Lymph # (Auto) 1.5 10^3/uL 10^3/ uL (0.8-4.8) [place] # (Auto) 0.8 10^3/uL 10^3/ uL (0.2-0.9) Eos # (Auto) 0.0 10^3/uL 10^3/ uL (0.0-0.8) Baso # (Auto) 0.0 10^3/uL 10^3/ uL (0.0-0.1) Nucleated RBC % (a uto) 0 % % Nucleated RBCs # 0.0 /100WBC /100W BC Sodium Cancelled Potassium Cancelled Chloride Cancelled Carbon Dioxide Cancelled Anion Gap Cancelled BUN Cancelled Creatinine Cancelled GFR Calculation Cancelled Glucose Cancelled Calculated Osmolal ity Cancelled Lactate 1.2 mmol/L mmol/L (0.5-2.2) Calcium Cancelled Total Bilirubin Cancelled AST Cancelled ALT Cancelled Alkaline Phosphata se Cancelled Total Protein Cancelled Albumin Cancelled Globulin Cancelled Lipase Cancelled Urine Color Urine Appearance Urine pH Ur Specific Gravit y Urine Protein Urine Glucose (UA) Urine Ketones Urine Blood Urine Nitrate Urine Bilirubin Urine Urobilinogen Ur Leukocyte Sonia ase Urine RBC Urine WBC Ur Squamous Epith Cells Calcium Oxalate Cr ystal Amorphous Sediment Urine Bacteria 02/01/21 02/01/21 21:43 22:45 WBC RBC Hgb Hct MCV MCH MCHC RDW Plt Count MPV Neut % (Auto) Lymph % (Auto) [place] % (Auto) Eos % (Auto) Baso % (Auto) Neut # (Auto) Lymph # (Auto) [place] # (Auto) Eos # (Auto) Baso # (Auto) Nucleated RBC % (a uto) Nucleated RBCs # Sodium 142 mmol/L mmol/L (136-145) Potassium 3.6 mmol/L mmol/L (3.5-5.1) Chloride 105 mmol/L mmol/L (98-107) Carbon Dioxide 27 mmol/L mmol/L (22-29) Anion Gap 13.6 (5-19) BUN 11 mg/dL mg/dL (8-23) Creatinine 0.6 mg/dL mg/dL (0.5-0.9) GFR Calculation Not Reportable Glucose 105 mg/dL mg/dL (65-115) Calculated Osmolal ity 294 mOsm/kg mOsm/ kg (285-295) Lactate Calcium 9.5 mg/dL mg/dL (8.5-10.5) Total Bilirubin 0.7 mg/dL mg/dL (0.15-1.2) AST 22 U/L U/L (0-32) ALT 32 U/L U/L (0-33) Alkaline Phosphata se 138 IU/L H IU/L (35-105) Total Protein 7.1 g/dL g/dL (6.6-8.7) Albumin 3.7 g/dL g/dL (3.5-5.2) Globulin 3.4 g/dL g/dL (1.3-4.6) Lipase 28 U/L U/L (13-60) Urine Color Yellow (Yellow) Urine Appearance Sl cloudy A (CLEAR) Urine pH 7 (5-7) Ur Specific Gravit y 1.015 (1.005-1.030) Urine Protein Neg (Negative) Urine Glucose (UA) Norm (Normal) Urine Ketones Negative (Negative) Urine Blood Neg (Negative) Urine Nitrate Positive H (Negative) Urine Bilirubin 1+ H (Negative) Urine Urobilinogen 8 mg/dL H mg/dL (Negative) Ur Leukocyte Sonia ase Trace H (Negative) Urine RBC 0-4 /hpf H /hpf (0-2) Urine WBC 25-40 /hpf H /hpf (0-5) Ur Squamous Epith Cells 0-4 /hpf H /hpf (0-5) Calcium Oxalate Cr ystal 0-4 /hpf H /hpf Amorphous Sediment 3+ /hpf /hpf Urine Bacteria 4+ /hpf H /hpf (NONE) Discharge Plan Discharge Patient Disposition: Home Clinical Impression: Constipation, Acute UTI Condition: Stable Prescriptions: New cephalexin 500 mg capsule 500 mg PO BID 5 Days Qty: 10 RF: 0 No Action Lasix 40 mg Tablet 40 mg PO DAILY RF: 0 acetaminophen 325 mg Tablet 325 mg PO Q4H PRN (Reason: Pain) RF: 0 triamcinolone acetonide 0.5 % Cream 1 applic TOPICAL BID PRN (Reason: redness) RF: 0 nystatin 100,000 unit/gram Ointment 1 applic TOPICAL Q4H PRN (Reason: redness) RF: 0 Zofran 4 mg Tablet 4 mg PO Q8H PRN (Reason: Nausea) RF: 0 Senna-S 8.6-50 mg Tablet 1 tab-cap PO BID PRN (Reason: Constipation) RF: 0 Effexor XR 150 mg Capsule,Extended Release 24hr 300 mg PO DAILY RF: 0 tramadol 50 mg Tablet 50 mg PO TID PRN (Reason: Pain) RF: 0 Milk of Magnesia 400 mg/5 mL Suspension 30 ml PO DAILY PRN (Reason: Constipation) RF: 0 calcium carbonate 160 mg calcium (400 mg) Tablet,Chewable 320 mg PO Q4H PRN (Reason: Indigestion) RF: 0 docusate sodium 100 mg Capsule 100 mg PO BID RF: 0 Colace 100 mg Capsule 100 mg PO BID PRN (Reason: Constipation) RF: 0 gabapentin 300 mg Capsule 300 mg PO TID RF: 0 levothyroxine 200 mcg Tablet 200 mcg PO DAILY RF: 0 Miralax 17 gram/dose Powder 17 g PO BID RF: 0 loratadine 10 mg Tablet 10 mg PO DAILY RF: 0 Artificial Tears (glycerin) Drops 1 drp OPHTHALMIC (EYE) Q4H PRN (Reason: Eye Irritation) RF: 0 Biofreeze 0.2-3.5 % Gel 1 applic TOPICAL Q8H PRN (Reason: Pain) RF: 0 potassium chloride 20 mEq Tablet Extended Release 20 meq PO DAILY RF: 0 Remeron 15 mg tablet 15 mg PO DAILY Qty: 60 RF: 0 Discharge Orders: Discharge ED (Routine); Ordered 02/02/21 Ordered By: Eric Yeager Patient Instructions: Constipation (ED), Urinary Tract Infection in Women (ED) Activity Restrictions/Additional Instructions: Antibiotics as prescribed and directed for urinary tract infection. Laxative for constipation. Drink plenty of liquids for the next 24 hours. Return for fever greater than 100, vomiting liquids or medications, other concerning symptoms. Coding Level of Care Code ED Application Spec for Consuelo Tobin
[2021-02-01 21:28] LABS: Basophils % 0.1 %; Hematocrit 46.8 % (37.0-47.0); Hemoglobin 14.8 g/dL (11.5-15.3); Lymphocytes # 1.5 10^3/uL (0.8-4.8); Lymphocytes % 17.9 %; Mean Corpuscular HGB Conc 31.6 g/dL (30.0-36.0); Mean Corpuscular Hemoglobin 29.5 pg (28.0-34.0); Mean Corpuscular Volume 93.4 fl (81-99); Mean Platelet Volume 11.7 fL (7.4-10.4); Monocytes # 0.8 10^3/uL (0.2-0.9); Monocytes % 9.5 %; Neutrophils # 5.92 10^3/uL (1.8-7.7); Neutrophils % 71.9 %; Nucleated Red Blood Cells % 0 %; Platelet Count 257 10^3/cmm (130-400); Red Blood Count 5.01 10^6/uL (4.1-5.3); Red Cell Distribution Width 14.6 % (12.1-15.1); White Blood Count 8.2 10^3/uL (4.0-10.0)
[2021-02-01 21:47] LABS: Lactate (Lactic Acid level) 1.2 mmol/L (0.5-2.2)
[2021-02-01 22:07] VITALS: BP 146/84; PULSE 94; RESP 20; O2SAT 95
[2021-02-01 22:26] LABS: Add Urine Culture? Yes; Add Urine Microscopic? YES; Amorphous Sediment Urine 3+ /hpf; Bacteria Urine 4+ /hpf; Bilirubin Urine 1+ (Negative); Blood Urine Neg (Negative); Calcium Oxalate Crystals Urine 0-4 /hpf; Glucose Urine UA Norm (Normal); Ketones Urine Negative (Negative); Leukocyte Esterase Urine Trace (Negative); Nitrate Urine Positive (Negative); Protein Urine Neg (Negative); RBC Urine 0-4 /hpf (0-2); Specific Gravity, Urine 1.015 (1.005-1.030); Squamous Epithelial Cell Urine 0-4 /hpf (0-5); Urine Color Yellow (Yellow); Urobilinogen Urine 8 mg/dL (Negative); WBC Urine 25-40 /hpf (0-5); pH Urine 7 (5-7)
[2021-02-01] MEDS: famotidine 20 mg Tablet PO (22:30)
[2021-02-01 23:07] LABS: Alanine Aminotransferase 32 U/L (0-33); Albumin Level 3.7 g/dL (3.5-5.2); Alkaline Phosphatase 138 IU/L (35-105); Anion Gap 13.6 (5-19); Aspartate Amino Transferase 22 U/L (0-32); Blood Urea Nitrogen 11 mg/dL (8-23); Calcium 9.5 mg/dL (8.5-10.5); Carbon Dioxide 27 mmol/L (22-29); Chloride 105 mmol/L (98-107); Globulin 3.4 g/dL (1.3-4.6); Glucose 105 mg/dL (65-115); Lipase 28 U/L (13-60); Osmolality Calculated 294 mOsm/kg (285-295); Potassium 3.6 mmol/L (3.5-5.1); Sodium 142 mmol/L (136-145); Total Bilirubin 0.7 mg/dL (0.15-1.2); Total Protein 7.1 g/dL (6.6-8.7)
[2021-02-01] MEDS: iohexol 300 mg/mL 100 mL Btl IV (23:22)
[2021-02-02] VITALS: BP 138/88; PULSE 94; RESP 18; O2SAT 95
[2021-02-02 02:07] VITALS: BP 152/87; PULSE 104; RESP 20; O2SAT 95
[2021-02-02 02:51] VITALS: BP 152/87; PULSE 104; RESP 20; O2SAT 95
== END 2021-02-02 02:40 | disposition home or self-care (01) ==
PROVIDERS: Emergency Medicine; Emergency Provider Emergency Medicine
DX: K59.00 Constipation, unspecified (principal); N39.0 Urinary tract infection, site not specified
CPT/HCPCS: 74177; 80053; 81001; 83605; 83690; 85025; 87077; 87086; 87186; 99283; Q9967

== ENCOUNTER 2021-02-25 11:49 | Emergency (ER) | payer MEDICARE, MEDICAID, SELFPAY ==
[2021-02-25 11:56] VITALS: BP 179/92; PULSE 77; RESP 19; TEMP 37.7; O2SAT 95; BMI 53.1
--- NOTE | 2021-02-25 12:02 | ECG_ITS ---
[facility] Test Date: 2021-02-25 Pat Name: Fely Matta Department: Room: Gender: Female Court Transcriber: : 1950 Requested By: Paul Alonso Order Number: [id number] Clemente MD: Janet Powers M.D. Measurements Intervals Gilbert Rate: 76 P: -44 WV: 123 QRS: 19 QRSD: 97 T: 39 QT: 409 QTc: 460 Interpretive Statements SINUS RHYTHM MINIMAL ST DEPRESSION [0.025+ mV ST DEPRESSION] Compared to ECG 12/10/2020 13:40:20 ST (T wave) deviation now present Electronically Signed On 02-25-2021 19:15:35 CDT by Janet Powers M.D. [id number]
--- NOTE | 2021-02-25 12:03 | ED_ITS ---
HPI - General Adult General: Chief complaint: General Medical Stated complaint: UNCOMFORTABLE Time Seen by Provider: 02/25/21 11:50 History of Present Illness: HPI narrative: 70-year-old female who comes in from the long term. Is difficult to get any significant history out of her. EMS reported the same. They were called because she was poorly responsive however she was awake and alert on their arrival there medic relates that patient seems to thought everyone is stepped out of the room and she opened her eyes and looked around there was a medic at the bedside yet that was out of her line of sight when he seen her opening her eyes he began asking questions and she responded and followed simple commands. On arrival here she is awake she will follow simple commands and answer some questions but does not give any significant detail I asked what is hurting her why they called the ambulance she will either state I do not know or just tell me that she is cold she will deny any chest pain abdominal pain dysuria urgency or frequency cough or shortness of breath.Patient has had similar episodes when in the ER previously. Onset (ago): unknown Relieving factors: none Exacerbating factors: none Associated symptoms: Deny chest pain, cough, diaphoresis, decreased appetite, dyspnea, fevers/chills, headache(s), malaise, nausea, rash, palpitations, seizures, short of breath, syncope, vomiting or weakness Treatments prior to arrival: none Review of Systems Const: Denies: malaise or diaphoresis ENMT: Denies: throat pain, ear or mastoid pain, nasal discharge or nasal congestion Card: Denies: chest pain, palpitations or syncope Resp: Denies: dyspnea GI: Denies: nausea or vomiting : Denies: flank pain, difficulty voiding, dysuria, urinary frequency or urinary urgency Skin/Breast: Denies: rash Neuro: Denies: headache(s) PFSH ED PFSH: Surgical History Status post total left knee replacement Family History Mother Hypertension Social History Smoking and tobacco status: never smoked Alcohol intake: never Marital status: Female Reproductive History: Date of last menstrual period: 08/02/20 Physical Exam Const: COMMON NORMALS: no acute distress ORIENTATION/CONSCIOUSNESS: Yes awake HENMT: COMMON NORMALS: normocephalic, atraumatic and hearing grossly normal bilaterally HEAD & SCALP: normocephalic and atraumatic Neck/C-Spine: COMMON NORMALS: no JVD Resp: COMMON NORMALS: normal respiratory effort, No retractions, No use of accessory muscles and clear to auscultation bilaterally AUSCULTATION: clear to auscultation bilaterally Cardio: COMMON NORMALS: no JVD, regular rate, regular rhythm and No murmurs present (Cardio) RATE: regular rate RHYTHM: regular rhythm GI: COMMON NORMALS: Soft to palpation and No hepatosplenomegaly present AUSCULTATION: Yes normoactive bowel sounds PALPATION: Yes Soft to palpation, No Tenderness to palpation present (GI), No Guarding due to palpation present (GI) and Yes No hepatosplenomegaly present Extremity: COMMON NORMALS: normal to inspection, capillary refill normal, no clubbing, cyanosis or edema, no calf tenderness and no pedal edema Skin: COMMON NORMALS: no rashes or lesions noted GENERAL SKIN EXAM: no rashes or lesions noted Course Vital Signs: Vital signs: Vital Signs Temperature 99.8 F H 02/25/21 11:56 Pulse Rate 77 02/25/21 11:56 Respiratory Rate 19 H 02/25/21 11:56 Blood Pressure 179/92 02/25/21 11:56 Pulse Oximetry 95 02/25/21 11:56 MDM - General Adult MDM Narrative: Medical decision making narrative: Patient refused all offers for care she is refusing any blood draw IV or EKG. She has no specific complaints at this time. Wearing Goeden discharge her back to the long term. Discharge Plan Discharge Patient Disposition: Home Clinical Impression: Major depression, recurrent, chronic, Care refused by patient Condition: Stable Prescriptions: No Action Lasix 40 mg Tablet 40 mg PO DAILY RF: 0 acetaminophen 325 mg Tablet 325 mg PO Q4H PRN (Reason: Pain) RF: 0 triamcinolone acetonide 0.5 % Cream 1 applic TOPICAL BID PRN (Reason: redness) RF: 0 nystatin 100,000 unit/gram Ointment 1 applic TOPICAL Q4H PRN (Reason: redness) RF: 0 Zofran 4 mg Tablet 4 mg PO Q8H PRN (Reason: Nausea) RF: 0 Senna-S 8.6-50 mg Tablet 1 tab-cap PO BID PRN (Reason: Constipation) RF: 0 Effexor XR 150 mg Capsule,Extended Release 24hr 300 mg PO DAILY RF: 0 tramadol 50 mg Tablet 50 mg PO TID PRN (Reason: Pain) RF: 0 Milk of Magnesia 400 mg/5 mL Suspension 30 ml PO DAILY PRN (Reason: Constipation) RF: 0 calcium carbonate 160 mg calcium (400 mg) Tablet,Chewable 320 mg PO Q4H PRN (Reason: Indigestion) RF: 0 docusate sodium 100 mg Capsule 100 mg PO BID RF: 0 Colace 100 mg Capsule 100 mg PO BID PRN (Reason: Constipation) RF: 0 gabapentin 300 mg Capsule 300 mg PO TID RF: 0 levothyroxine 200 mcg Tablet 200 mcg PO DAILY RF: 0 Miralax 17 gram/dose Powder 17 g PO BID RF: 0 loratadine 10 mg Tablet 10 mg PO DAILY RF: 0 Artificial Tears (glycerin) Drops 1 drp OPHTHALMIC (EYE) Q4H PRN (Reason: Eye Irritation) RF: 0 Biofreeze 0.2-3.5 % Gel 1 applic TOPICAL Q8H PRN (Reason: Pain) RF: 0 potassium chloride 20 mEq Tablet Extended Release 20 meq PO DAILY RF: 0 Remeron 15 mg tablet 15 mg PO DAILY Qty: 60 RF: 0 Discharge Orders: Discharge ED (Routine); Ordered 02/25/21 Ordered By: Paul Avila Discharge Diet: Usual diet Discharge Activity: Resume usual activity Patient Instructions: Opioid Safety Coding Level of Care Code ED Tax Assistant for Chg Fwd Exam Comprehensive
--- NOTE | 2021-02-25 12:11 | PC.NURSE ---
Pt refusing labs and IV. ERP aware.
--- NOTE | 2021-02-25 12:24 | PC.NURSE ---
Pt is A&O to name, birthday, year, president, and situation.
[2021-02-25 14:03] VITALS: PULSE 71; O2SAT 98
--- NOTE | 2021-02-25 14:03 | PC.NURSE ---
Pt continues to refuse care stating, just let me sleep.
== END 2021-02-25 17:05 | disposition home or self-care (01) ==
PROVIDERS: Emergency Provider Family Medicine
DX: F33.9 Major depressive disorder, recurrent, unspecified (principal); Z53.29 Procedure and treatment not carried out because of patient's decision for other reasons
CPT/HCPCS: 93005; 99281

== ENCOUNTER 2021-03-11 06:04 | Emergency (ER) | payer MEDICARE, MEDICAID, SELFPAY ==
[2021-03-11 06:06] VITALS: BP 125/77; PULSE 77; RESP 20; TEMP 36.8; O2SAT 93; BMI 53.1
--- NOTE | 2021-03-11 06:08 | W.ED.NAVMDI ---
HPI - Nausea/Vomiting/Diarrhea General: Chief complaint: Nausea/Vomiting/Diarrhea Stated complaint: nausea Time Seen by Provider: 03/11/21 06:07 History of Present Illness: HPI Narrative: 70-year-old female presents emergency room via EMS from the skilled nursing with complaints of nausea and shortness of breath. On arrival here she denies any chest pain her sats are in the mid 90s on room air she is stating she cannot brace. She denies any productive cough. She not had a fever. Denies abdominal pain or swelling in her legs. MD elicited complaint: nausea Onset (ago): hour(s) Associated nausea: Yes Associated abdominal pain: No Severity: moderate Quality: cramping Exacerbating factors: none Relieving factors: none Associated symtoms: Reports anxiety and nausea; Denies altered mental status, bloating, change in vision, chest pain, cough, diaphoresis, decreased urine output, dizziness, dysuria, epistaxis, fatigue, fecal incontinence, fevers/chills, headache(s), anorexia, malaise, myalgias, numbness, palpitations, rash, short of breath, syncope, tenesmus, tinnitus or weakness Review of Systems Const: Denies: fatigue, malaise or diaphoresis Eyes: Denies: change in vision ENMT: Denies: tinnitus or epistaxis Card: Denies: chest pain, palpitations or syncope Resp: Denies: dyspnea, productive cough or non-productive cough GI: Reports: nausea; Denies: bloating or fecal incontinence : Denies: dysuria Skin/Breast: Denies: rash or pruritus Neuro: Denies: headache(s) or dizziness Psych: Reports: anxiety [facility] ED PFSH: Surgical History Status post total left knee replacement Family History Mother Hypertension Social History Smoking and tobacco status: never smoked Alcohol intake: never Marital status: Female Reproductive History: Date of last menstrual period: 08/02/20 Physical Exam Const: COMMON NORMALS: no acute distress EXAM LIMITATIONS: no altered mental status GENERAL APPEARANCE: cooperative and comfortable ORIENTATION/CONSCIOUSNESS: Yes awake HENMT: COMMON NORMALS: normocephalic, atraumatic and hearing grossly normal bilaterally HEAD & SCALP: normocephalic and atraumatic Neck/C-Spine: COMMON NORMALS: no JVD Resp: COMMON NORMALS: normal respiratory effort, No retractions, No use of accessory muscles and clear to auscultation bilaterally AUSCULTATION: clear to auscultation bilaterally Cardio: COMMON NORMALS: no JVD, regular rate, regular rhythm and No murmurs present (Cardio) RATE: regular rate RHYTHM: regular rhythm GI: COMMON NORMALS: Soft to palpation and No hepatosplenomegaly present AUSCULTATION: Yes normoactive bowel sounds PALPATION: Yes Soft to palpation, No Tenderness to palpation present (GI), No Guarding due to palpation present (GI) and Yes No hepatosplenomegaly present Extremity: COMMON NORMALS: normal to inspection, capillary refill normal, no clubbing, cyanosis or edema, no calf tenderness and no pedal edema Skin: COMMON NORMALS: no rashes or lesions noted GENERAL SKIN EXAM: no rashes or lesions noted Course Vital Signs: Vital signs: Vital Signs Temperature 98.2 F 03/11/21 06:06 Pulse Rate 77 03/11/21 06:06 Respiratory Rate 20 H 03/11/21 06:06 Blood Pressure 125/77 03/11/21 06:06 Pulse Oximetry 93 03/11/21 06:06 MDM - Nausea/Vomiting/Diarrhea MDM Narrative: Medical decision making narrative: Mild fluid overload and hypokalemia. Given lasix and potassium supplment. Recheck BMP in 2 days. Lab Data: Labs: Lab Results 03/11/21 03/11/21 06:20 06:20 WBC 6.5 10^3/uL 10^3/ uL (4.0-10.0) RBC 4.89 10^6/uL 10^6 /uL (4.1-5.3) Hgb 14.6 g/dL g/dL (11.5-15.3) Hct 45.7 % % (37.0-47.0) MCV 93.5 fl fl (81-99) MCH 29.9 pg pg (28.0-34.0) MCHC 31.9 g/dL g/dL (30.0-36.0) RDW 15.9 % H % (12.1-15.1) Plt Count 202 10^3/cmm 10^3 /cmm (130-400) MPV 11.4 fL H fL (7.4-10.4) Neut % (Auto) 58.2 % % Lymph % (Auto) 31.7 % % [place] % (Auto) 9.4 % % Eos % (Auto) 0.0 % % Baso % (Auto) 0.2 % % Neut # (Auto) 3.76 10^3/uL 10^3 /uL (1.8-7.7) Lymph # (Auto) 2.1 10^3/uL 10^3/ uL (0.8-4.8) [place] # (Auto) 0.6 10^3/uL 10^3/ uL (0.2-0.9) Eos # (Auto) 0.0 10^3/uL 10^3/ uL (0.0-0.8) Baso # (Auto) 0.0 10^3/uL 10^3/ uL (0.0-0.1) Nucleated RBC % (a uto) 0 % % Nucleated RBCs # 0.0 /100WBC /100W BC Sodium 140 mmol/L mmol/L (136-145) Potassium 2.9 mmol/L L mmol /L (3.5-5.1) Chloride 104 mmol/L mmol/L (98-107) Carbon Dioxide 26 mmol/L mmol/L (22-29) Anion Gap 12.9 (5-19) BUN 10 mg/dL mg/dL (8-23) Creatinine 0.4 mg/dL L mg/dL (0.5-0.9) GFR Calculation Not Reportable Glucose 111 mg/dL mg/dL (65-115) Calculated Osmolal ity 290 mOsm/kg mOsm/ kg (285-295) Calcium 8.9 mg/dL mg/dL (8.5-10.5) Total Bilirubin 0.6 mg/dL mg/dL (0.15-1.2) AST 12 U/L U/L (0-32) ALT 19 U/L U/L (0-33) Alkaline Phosphata se 95 IU/L IU/L (35-105) NT-Pro-B Natriuret Pep 177 pg/mL H pg/mL (0-125) Total Protein 6.0 g/dL L g/dL (6.6-8.7) Albumin 3.3 g/dL L g/dL (3.5-5.2) Globulin 2.7 g/dL g/dL (1.3-4.6) Discharge Plan Discharge Patient Disposition: Home Clinical Impression: Mild congestive heart failure, Hypokalemia Condition: Stable Prescriptions: New Lasix 40 mg tablet 40 mg PO DAILY Qty: 5 RF: 0 potassium chloride 20 mEq tablet extended release 20 meq PO BID Qty: 20 RF: 0 No Action acetaminophen 325 mg Tablet 325 mg PO Q4H PRN (Reason: Pain) RF: 0 triamcinolone acetonide 0.5 % Cream 1 applic TOPICAL BID PRN (Reason: redness) RF: 0 nystatin 100,000 unit/gram Ointment 1 applic TOPICAL Q4H PRN (Reason: redness) RF: 0 ondansetron HCl [Zofran] 4 mg Tablet 4 mg PO Q8H PRN (Reason: Nausea) RF: 0 sennosides-docusate sodium [Senna-S] 8.6-50 mg Tablet 1 tab-cap PO BID PRN (Reason: Constipation) RF: 0 magnesium hydroxide [Milk of Magnesia] 400 mg/5 mL Suspension 30 ml PO DAILY PRN (Reason: Constipation) RF: 0 calcium carbonate 160 mg calcium (400 mg) Tablet,Chewable 320 mg PO Q4H PRN (Reason: Indigestion) RF: 0 docusate sodium 100 mg Capsule 100 mg PO BID RF: 0 levothyroxine 200 mcg Tablet 200 mcg PO DAILY RF: 0 polyethylene glycol 3350 [Miralax] 17 gram/dose Powder 17 g PO BID RF: 0 loratadine 10 mg Tablet 10 mg PO DAILY RF: 0 Artificial Tears (glycerin) Drops 1 drp OPHTHALMIC (EYE) Q4H PRN (Reason: Eye Irritation) RF: 0 famotidine 20 mg Tablet 20 mg PO DAILY PRN (Reason: Acid Reflux) RF: 0 Prozac 20 mg Capsule 20 mg PO DAILY RF: 0 risperidone 1 mg Tablet 1 mg PO DAILY RF: 0 lactulose 10 gram/15 mL Solution 15 ml PO DAILY RF: 0 Discharge Orders: Discharge ED (Routine); Ordered 03/11/21 Ordered By: Paul Avila Discharge Diet: Usual diet Discharge Activity: Resume usual activity Patient Instructions: Opioid Safety Activity Restrictions/Additional Instructions: Repeat BMP in the next 2 days with primary care therapy skilled nursing. Coding Level of Care Code ED It Infrastructure Project Manager for Consuelo Fwandrey Exam Comprehensive
--- NOTE | 2021-03-11 06:10 | ECG_ITS ---
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
--- NOTE | 2021-03-11 06:17 | XRR_ITS ---
PROCEDURE INFORMATION: Exam: XR Chest Exam date and time: 03/11/2021 6:17 AM Age: 70 years old Clinical indication: Dyspnea; Patient HX: SOB since yesterday; Additional info: Dyspnea/cough TECHNIQUE: Imaging protocol: XR of the chest. Views: 1 view. COMPARISON: CR XR chest 1V portable [id number] 12/10/2020 1:10 PM FINDINGS: Lungs: There is prominence of the central pulmonary vasculature mild bronchial wall thickening, findings that may represent mild pulmonary edema. Pleural spaces: Unremarkable. No pleural effusion. No pneumothorax. Heart/Mediastinum: Unremarkable. No cardiomegaly. Bones/joints: Unremarkable. XR/XR chest 1V portable [id number] IMPRESSION: Mild prominence and indistinctness of the pulmonary vasculature and peribronchial cuffing could represent mild pulmonary edema. Radiation Dose CTDIVOL = (mGy): DLP = (mGy-cm)
[2021-03-11 06:26] LABS: Basophils % 0.2 %; Hematocrit 45.7 % (37.0-47.0); Hemoglobin 14.6 g/dL (11.5-15.3); Lymphocytes # 2.1 10^3/uL (0.8-4.8); Lymphocytes % 31.7 %; Mean Corpuscular HGB Conc 31.9 g/dL (30.0-36.0); Mean Corpuscular Hemoglobin 29.9 pg (28.0-34.0); Mean Corpuscular Volume 93.5 fl (81-99); Mean Platelet Volume 11.4 fL (7.4-10.4); Monocytes # 0.6 10^3/uL (0.2-0.9); Monocytes % 9.4 %; Neutrophils # 3.76 10^3/uL (1.8-7.7); Neutrophils % 58.2 %; Nucleated Red Blood Cells % 0 %; Platelet Count 202 10^3/cmm (130-400); Red Blood Count 4.89 10^6/uL (4.1-5.3); Red Cell Distribution Width 15.9 % (12.1-15.1); White Blood Count 6.5 10^3/uL (4.0-10.0)
[2021-03-11 06:55] LABS: Alanine Aminotransferase 19 U/L (0-33); Albumin Level 3.3 g/dL (3.5-5.2); Alkaline Phosphatase 95 IU/L (35-105); Anion Gap 12.9 (5-19); Aspartate Amino Transferase 12 U/L (0-32); Blood Urea Nitrogen 10 mg/dL (8-23); Calcium 8.9 mg/dL (8.5-10.5); Carbon Dioxide 26 mmol/L (22-29); Chloride 104 mmol/L (98-107); Globulin 2.7 g/dL (1.3-4.6); Glucose 111 mg/dL (65-115); NT Pro B Type Natriuretic Pept 177 pg/mL (0-125); Osmolality Calculated 290 mOsm/kg (285-295); Sodium 140 mmol/L (136-145); Total Bilirubin 0.6 mg/dL (0.15-1.2)
[2021-03-11 07:00] LABS: Potassium 2.9 mmol/L (3.5-5.1)
[2021-03-11] MEDS: promethazine 25 mg/mL SDV 1 mL IM (07:10)
[2021-03-11] MEDS: potassium chloride oral liq 20 mEq/15 mL UDC 40 MEQ PO (07:11)
[2021-03-11] MEDS: FUROsemide 10 mg/mL SDV 4mL 40 MG IVP (07:13)
[2021-03-11 10:07] LABS: Add Urine Microscopic? YES; Bacteria Urine 2+ /hpf; Bilirubin Urine Neg (Negative); Blood Urine Neg (Negative); Glucose Urine UA Norm (Normal); Ketones Urine Negative (Negative); Leukocyte Esterase Urine Negative (Negative); Nitrate Urine Negative (Negative); Protein Urine Neg (Negative); Urine Appearance Hazy (CLEAR); Urine Color Yellow (Yellow); Urobilinogen Urine Norm (Negative); pH Urine 7 (5-7)
== END 2021-03-11 10:17 | disposition home or self-care (01) ==
PROVIDERS: Emergency Provider Family Medicine
DX: I50.9 Heart failure, unspecified (principal); E87.6 Hypokalemia
CPT/HCPCS: 71045; 80053; 81001; 83880; 85025; 93005; 96372; 96374; 99284; J1940; J2550

== ENCOUNTER 2021-10-14 17:14 | Emergency (ER) | payer MEDICARE, MEDICAID, SELFPAY ==
--- NOTE | 2021-10-14 17:22 | XRR_ITS ---
PROCEDURE INFORMATION: Exam: XR Chest Exam date and time: 10/14/2021 5:57 PM Age: 70 years old Clinical indication: Other: Anxiety; Additional info: Psych TECHNIQUE: Imaging protocol: XR of the chest. Views: 1 view. COMPARISON: CR XR chest 1V portable [id number] 03/11/2021 6:27 AM FINDINGS: Lungs: A calcified granuloma is again seen in the left upper lobe. No acute airspace process is visualized. Pleural spaces: Unremarkable. No pleural effusion. No pneumothorax. Heart/Mediastinum: Unremarkable. No cardiomegaly. Bones/joints: Unremarkable. XR/XR chest 1V portable [id number] IMPRESSION: No acute cardiopulmonary abnormality.
--- NOTE | 2021-10-14 17:23 | ECG_ITS ---
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 Measurements Intervals [place] Rate: 75 P: -43 MS: 134 QRS: 26 QRSD: 90 T: 58 QT: 401 QTc: 450 Interpretive Statements SINUS RHYTHM Compared to ECG 03/11/2021 06:24:16 T-wave abnormality no longer present Electronically Signed On 10-15-2021 17:56:17 CDT by Rex Plummer M.D. [email or web address]/[id number]
--- NOTE | 2021-10-14 17:24 | W.ED.GENADLT ---
Documented by User: Sanjay Ball MD 10/14/21 19:01 HPI - General Adult General: Chief complaint: Altered Mental Status Stated complaint: ANXIETY Time Seen by Provider: 10/14/21 17:16 History of Present Illness: [70]yo patient w/ hx of depression BIBA for worsening depression and anxiety. Patient tells me that she has chronic lower extremity pain and has been off the tramadol. Patient tells me that she is feeling extremely depressed at intermediate and does not want to live anymore. She does not have any active plan. Patient told nursing staff that I wish I was earlier today and was brought to the emergency room. On arrival, the patient is AAOx3 and cooperative with my evaluation. No focal complaints of chest pain, shortness of breath, palpitations, N/V, focal GI/ complaints. Currently denies HI. No complaints of hallucinations. Onset: acute Duration: ongoing Location: home Severity: severe Associated symptoms: Deny chest pain, dyspnea, nausea, rash, palpitations or vomiting Review of Systems Const: Denies: fever(s) or chills Eyes: Denies: change in vision ENMT: Denies: mouth pain Card: Denies: chest pain or palpitations Resp: Denies: dyspnea or non-productive cough GI: Denies: abdominal pain, nausea, vomiting or diarrhea : Denies: dysuria Musc: Denies: extremity pain Skin/Breast: Denies: rash or new lesions Neuro: Denies: weakness in extremities Psych: Reports: depression Corbin/Lymph: Denies: easy bruising PFS ED PFSH: Medical History (Updated 10/23/21 @ 00:01 by ) Anxiety Depression Surgical History Status post total left knee replacement Family History Mother Hypertension Social History Smoking and tobacco status: never smoked Alcohol intake: never Marital status: Female Reproductive History: Date of last menstrual period: 08/02/20 Physical Exam Const: COMMON NORMALS: alert HENMT: COMMON NORMALS: atraumatic HEAD & SCALP: atraumatic MOUTH: moist mucous membranes not abnormal Eye: COMMON NORMALS: EOMs intact bilaterally and conjunctivae normal CONJUNCTIVA: Yes conjunctivae normal Neck/C-Spine: COMMON NORMALS: full ROM and supple Resp: COMMON NORMALS: normal respiratory effort and clear to auscultation bilaterally AUSCULTATION: clear to auscultation bilaterally Cardio: COMMON NORMALS: regular rate RATE: regular rate GI: COMMON NORMALS: Soft to palpation and non-tender PALPATION: Yes Soft to palpation Extremity: COMMON NORMALS: full ROM Neuro: SENSORIUM/ORIENTATION: Yes alert MOTOR EXAM: No Abnormal motor strength present and Other motor observations present (no focal motor deficits) Psych: COMMON NORMALS: speech normal SPEECH: Yes normal speech MOOD & AFFECT: Yes depressed mood Course Vital Signs: Vital signs: Vital Signs Temperature 98.3 F 10/15/21 22:22 Pulse Rate 85 10/15/21 22:22 Respiratory Rate 20 H 10/15/21 22:22 Blood Pressure 153/96 10/15/21 22:22 Pulse Oximetry 95 10/15/21 22:22 MDM - General Adult Medical Decision Making [70]yo patient w/ hx of depression and anxiety presenting for worsening depression and anxiety. HDS, exam within normal limit Thoughts are linear and organized, and the patient has no AH/VH, or HI. Clinically the patient displays no overt toxidrome; they are well appearing, with low suspicion for toxic ingestion given history and exam. Symptoms unlikely 2/2 anemia, hypothyroidism, infection, or ICH. Workup: CBC, CMP, Lipase, salicylate/tylenol, serum ethanol, UDS, TSH/free T4, EKG, XR chest Lab findings: wnl, UA showed possible UTI, [7:30pm] On reassessment, labs and workup wnl. Patient is hemodynamically stable with no acute medical complaints. Case discussed with psychiatric provider Dr. Gipson at [facility] psych inpatient care who tells me that given the fact the patient is not able to obtain outpatient psychiatric care and given patient's age and persistent symptoms, he recommended transferring patient to geriatric psych facility. Patient received keflex for UTI and ativan for anxiety in the ED. Patient received nifedipine for elevated blood pressure. Disposition: Xfer to geriatric psych facility Lab Data : 10/14/21 18:45 10/14/21 18:45 Radiology Impressions Chest X-Ray 10/14/21 17:22 IMPRESSION: No acute cardiopulmonary abnormality. Laboratory Results WBC 8.0 10^3/uL (4.0-10.0) 10/14/21 18:45 RBC 4.62 10^6/uL (4.1-5.3) 10/14/21 18:45 Hgb 14.6 g/dL (11.5-15.3) 10/14/21 18:45 Hct 46.1 % (37.0-47.0) 10/14/21 18:45 MCV 99.8 fl (81-99) H 10/14/21 18:45 MCH 31.6 pg (28.0-34.0) 10/14/21 18:45 MCHC 31.7 g/dL (30.0-36.0) 10/14/21 18:45 RDW 13.0 % (12.1-15.1) 10/14/21 18:45 Plt Count 235 10^3/cmm (130-400) 10/14/21 18:45 MPV 10.2 fL (7.4-10.4) 10/14/21 18:45 Neut % (Auto) 62.2 % 10/14/21 18:45 Lymph % (Auto) 26.9 % 10/14/21 18:45 Schleicher % (Auto) 9.4 % 10/14/21 18:45 Eos % (Auto) 0.9 % 10/14/21 18:45 Baso % (Auto) 0.3 % 10/14/21 18:45 Neut # (Auto) 4.99 10^3/uL (1.8-7.7) 10/14/21 18:45 Lymph # (Auto) 2.2 10^3/uL (0.8-4.8) 10/14/21 18:45 Schleicher # (Auto) 0.8 10^3/uL (0.2-0.9) 10/14/21 18:45 Eos # (Auto) 0.1 10^3/uL (0.0-0.8) 10/14/21 18:45 Baso # (Auto) 0.0 10^3/uL (0.0-0.1) 10/14/21 18:45 Nucleated RBC % (auto) 0 % 10/14/21 18:45 Nucleated RBCs # 0.0 /100WBC 10/14/21 18:45 Sodium 137 mmol/L (136-145) 10/14/21 18:45 Potassium 3.5 mmol/L (3.5-5.1) 10/14/21 18:45 Chloride 103 mmol/L (98-107) 10/14/21 18:45 Carbon Dioxide 22 mmol/L (22-29) 10/14/21 18:45 Anion Gap 15.5 (5-19) 10/14/21 18:45 BUN 12 mg/dL (8-23) 10/14/21 18:45 Creatinine 0.5 mg/dL (0.5-0.9) 10/14/21 18:45 GFR Calculation Not Reportable 10/14/21 18:45 Glucose 101 mg/dL (65-115) 10/14/21 18:45 Calculated Osmolality 284 mOsm/kg (285-295) L 10/14/21 18:45 Calcium 9.3 mg/dL (8.5-10.5) 10/14/21 18:45 Total Bilirubin 0.5 mg/dL (0.15-1.2) 10/14/21 18:45 AST 14 U/L (0-32) 10/14/21 18:45 ALT 16 U/L (0-33) 10/14/21 18:45 Alkaline Phosphatase 110 IU/L (35-105) H 10/14/21 18:45 Total Protein 7.5 g/dL (6.6-8.7) 10/14/21 18:45 Albumin 4.1 g/dL (3.5-5.2) 10/14/21 18:45 Globulin 3.4 g/dL (1.3-4.6) 10/14/21 18:45 Lipase 32 U/L (13-60) 10/14/21 18:45 Urine Color Yellow (Yellow) 10/14/21 17:36 Urine Appearance Clear (CLEAR) 10/14/21 17:36 Urine pH 6.5 (5-7) 10/14/21 17:36 Ur Specific [place] 1.015 (1.005-1.030) 10/14/21 17:36 Urine Protein Neg (Negative) 10/14/21 17:36 Urine Glucose (UA) Norm (Normal) 10/14/21 17:36 Urine Ketones 1+ (Negative) H 10/14/21 17:36 Urine Blood Neg (Negative) 10/14/21 17:36 Urine Nitrate Positive (Negative) H 10/14/21 17:36 Urine Bilirubin Neg (Negative) 10/14/21 17:36 Urine Urobilinogen Norm mg/dL (Negative) 10/14/21 17:36 Ur Leukocyte Esterase Negative (Negative) 10/14/21 17:36 Urine RBC 0-4 /hpf (0-2) H 10/14/21 17:36 Urine WBC 0-4 /hpf (0-5) H 10/14/21 17:36 Ur Squamous Epith Cells 0-4 /hpf (0-5) H 10/14/21 17:36 Amorphous Sediment Not Reportable 10/14/21 17:36 Urine Bacteria 4+ /hpf (NONE) H 10/14/21 17:36 Salicylates < 0.3 mg/dL (3-10) L 10/14/21 18:45 Urine Opiates Screen Negative ng/mL (Negative) 10/14/21 17:36 Acetaminophen < 5.0 ug/mL (10-30) L 10/14/21 18:45 Ur Barbiturates Screen Negative ng/mL (Negative) 10/14/21 17:36 Ur Phencyclidine Scrn Negative ng/mL (Negative) 10/14/21 17:36 Ur Amphetamines Screen Negative ng/mL (Negative) 10/14/21 17:36 U Benzodiazepines Scrn Negative ng/mL (Negative) 10/14/21 17:36 Urine Cocaine Screen Negative ng/mL (Negative) 10/14/21 17:36 U Marijuana (THC) Screen Negative ng/mL (Negative) 10/14/21 17:36 Ethyl Alcohol < 10 mg/dL (0-10) 10/14/21 18:45 SARS-CoV-2 Ag (Rapid) Negative (Negative) 10/14/21 17:45 Discharge Plan Discharge Patient Disposition: Transfer to ED Clinical Impression: Depression, Anxiety, Depression with suicidal ideation Condition: Stable Prescriptions: No Action acetaminophen 325 mg Tablet 325 mg PO Q4H PRN (Reason: Pain) 0RF triamcinolone acetonide 0.5 % Cream 1 applic TOPICAL BID PRN (Reason: redness) 0RF nystatin 100,000 unit/gram Ointment 1 applic TOPICAL Q4H PRN (Reason: redness) 0RF magnesium hydroxide [Milk of Magnesia] 400 mg/5 mL Suspension 30 ml PO DAILY PRN (Reason: Constipation) 0RF calcium carbonate 160 mg calcium (400 mg) Tablet,Chewable 320 mg PO Q4H PRN (Reason: Indigestion) 0RF docusate sodium 100 mg Capsule 100 mg PO BID 0RF levothyroxine 200 mcg Tablet 200 mcg PO DAILY 0RF polyethylene glycol 3350 [Miralax] 17 gram/dose Powder 17 g PO BID 0RF loratadine 10 mg Tablet 10 mg PO DAILY 0RF famotidine 20 mg Tablet 20 mg PO DAILY PRN (Reason: Acid Reflux) 0RF lactulose 10 gram/15 mL Solution 15 ml PO DAILY 0RF A&D Plus Pérez See Rx Instructions .ROUTE .COMPLEX 0RF Rx Instructions: PER PACKAGE DIRECTIONS Artificial Tears (polyvin alc) 1.4 % Drops 1 drp OPHTHALMIC (EYE) Q4H PRN (Reason: Dry Eye(S)) 0RF hydroxyzine HCl 50 mg Tablet 50 mg PO BEDTIME 0RF Emma-Tussin 100 mg/5 mL Liquid 200 mg PO Q6H PRN (Reason: Cough) 0RF lamotrigine 25 mg Tablet 25 mg PO DAILY 0RF gabapentin 300 mg Capsule 300 mg PO BEDTIME 0RF gabapentin 100 mg Capsule 100 mg PO BID 0RF Emsam 6 mg/24 hr Patch 24 Hour 1 patch TRANSDERMAL DAILY 0RF Minerin Creme Cream 1 applic TOPICAL DAILY 0RF Biofreeze 0.2-3.5 % Gel 1 applic TOPICAL DAILY PRN (Reason: Pain) 0RF Rx Instructions: rub in gently and completely ondansetron 4 mg Tablet,Disintegrating 4 mg PO Q8H PRN (Reason: Nausea) 0RF Sign Out Sign Out Data: Patient Sign Out occurred on 10/14/21 at 23:02. Patient's care was discussed, and care was transferred from to Ramiro Curran MD. Patient Sign Out occurred on 10/15/21 at 06:30. Patient's care was discussed, and care was transferred from to Paul Avila DO. Coding Level of Care Code ED [employer] Fwd Exam Comprehensive Documented by User: Ramiro Curran MD 10/27/21 22:58 HPI - General Adult General: Chief complaint: Altered Mental Status Stated complaint: ANXIETY Time Seen by Provider: 10/14/21 17:16 [facility] ED PFSH: Medical History (Updated 10/23/21 @ 00:01 by ) Anxiety Depression Surgical History Status post total left knee replacement Family History Mother Hypertension Social History Smoking and tobacco status: never smoked Alcohol intake: never Marital status: Course Vital Signs: Vital signs: Vital Signs Temperature 98.3 F 10/15/21 22:22 Pulse Rate 85 10/15/21 22:22 Respiratory Rate 20 H 10/15/21 22:22 Blood Pressure 153/96 10/15/21 22:22 Pulse Oximetry 95 10/15/21 22:22 MDM - General Adult Medical Decision Making [70]yo patient w/ hx of depression and anxiety presenting for worsening depression and anxiety. HDS, exam within normal limit Thoughts are linear and organized, and the patient has no AH/VH, or HI. Clinically the patient displays no overt toxidrome; they are well appearing, with low suspicion for toxic ingestion given history and exam. Symptoms unlikely 2/2 anemia, hypothyroidism, infection, or ICH. Workup: CBC, CMP, Lipase, salicylate/tylenol, serum ethanol, UDS, TSH/free T4, EKG, XR chest Lab findings: wnl, UA showed possible UTI, [7:30pm] On reassessment, labs and workup wnl. Patient is hemodynamically stable with no acute medical complaints. Case discussed with psychiatric provider Dr. Gipson at [facility] psych inpatient care who tells me that given the fact the patient is not able to obtain outpatient psychiatric care and given patient's age and persistent symptoms, he recommended transferring patient to geriatric psych facility. Patient received keflex for UTI and ativan for anxiety in the ED. Patient received nifedipine for elevated blood pressure. Disposition: Xfer to geriatric psych facility Patient care handoff received pending accepting outside facility for [facility]. No accepting facility found during my shift. Care transferred to Dr. Avila pending accepting facility. No acute events during my shift. Ramiro Curran MD Emergency Medicine Patient was in the signout q. and the chart ended up in my work list. Dr. Aguilera seen the patient and affected all the care I did not see the patient or manage any of her care see Dr. Aguilera notes. Lab Data : 10/14/21 18:45 10/14/21 18:45 Radiology Impressions Chest X-Ray 10/14/21 17:22 IMPRESSION: No acute cardiopulmonary abnormality. Laboratory Results WBC 8.0 10^3/uL (4.0-10.0) 10/14/21 18:45 RBC 4.62 10^6/uL (4.1-5.3) 10/14/21 18:45 Hgb 14.6 g/dL (11.5-15.3) 10/14/21 18:45 Hct 46.1 % (37.0-47.0) 10/14/21 18:45 MCV 99.8 fl (81-99) H 10/14/21 18:45 MCH 31.6 pg (28.0-34.0) 10/14/21 18:45 MCHC 31.7 g/dL (30.0-36.0) 10/14/21 18:45 RDW 13.0 % (12.1-15.1) 10/14/21 18:45 Plt Count 235 10^3/cmm (130-400) 10/14/21 18:45 MPV 10.2 fL (7.4-10.4) 10/14/21 18:45 Neut % (Auto) 62.2 % 10/14/21 18:45 Lymph % (Auto) 26.9 % 10/14/21 18:45 Schleicher % (Auto) 9.4 % 10/14/21 18:45 Eos % (Auto) 0.9 % 10/14/21 18:45 Baso % (Auto) 0.3 % 10/14/21 18:45 Neut # (Auto) 4.99 10^3/uL (1.8-7.7) 10/14/21 18:45 Lymph # (Auto) 2.2 10^3/uL (0.8-4.8) 10/14/21 18:45 Schleicher # (Auto) 0.8 10^3/uL (0.2-0.9) 10/14/21 18:45 Eos # (Auto) 0.1 10^3/uL (0.0-0.8) 10/14/21 18:45 Baso # (Auto) 0.0 10^3/uL (0.0-0.1) 10/14/21 18:45 Nucleated RBC % (auto) 0 % 10/14/21 18:45 Nucleated RBCs # 0.0 /100WBC 10/14/21 18:45 Sodium 137 mmol/L (136-145) 10/14/21 18:45 Potassium 3.5 mmol/L (3.5-5.1) 10/14/21 18:45 Chloride 103 mmol/L (98-107) 10/14/21 18:45 Carbon Dioxide 22 mmol/L (22-29) 10/14/21 18:45 Anion Gap 15.5 (5-19) 10/14/21 18:45 BUN 12 mg/dL (8-23) 10/14/21 18:45 Creatinine 0.5 mg/dL (0.5-0.9) 10/14/21 18:45 GFR Calculation Not Reportable 10/14/21 18:45 Glucose 101 mg/dL (65-115) 10/14/21 18:45 Calculated Osmolality 284 mOsm/kg (285-295) L 10/14/21 18:45 Calcium 9.3 mg/dL (8.5-10.5) 10/14/21 18:45 Total Bilirubin 0.5 mg/dL (0.15-1.2) 10/14/21 18:45 AST 14 U/L (0-32) 10/14/21 18:45 ALT 16 U/L (0-33) 10/14/21 18:45 Alkaline Phosphatase 110 IU/L (35-105) H 10/14/21 18:45 Total Protein 7.5 g/dL (6.6-8.7) 10/14/21 18:45 Albumin 4.1 g/dL (3.5-5.2) 10/14/21 18:45 Globulin 3.4 g/dL (1.3-4.6) 10/14/21 18:45 Lipase 32 U/L (13-60) 10/14/21 18:45 Urine Color Yellow (Yellow) 10/14/21 17:36 Urine Appearance Clear (CLEAR) 10/14/21 17:36 Urine pH 6.5 (5-7) 10/14/21 17:36 Ur Specific [place] 1.015 (1.005-1.030) 10/14/21 17:36 Urine Protein Neg (Negative) 10/14/21 17:36 Urine Glucose (UA) Norm (Normal) 10/14/21 17:36 Urine Ketones 1+ (Negative) H 10/14/21 17:36 Urine Blood Neg (Negative) 10/14/21 17:36 Urine Nitrate Positive (Negative) H 10/14/21 17:36 Urine Bilirubin Neg (Negative) 10/14/21 17:36 Urine Urobilinogen Norm mg/dL (Negative) 10/14/21 17:36 Ur Leukocyte Esterase Negative (Negative) 10/14/21 17:36 Urine RBC 0-4 /hpf (0-2) H 10/14/21 17:36 Urine WBC 0-4 /hpf (0-5) H 10/14/21 17:36 Ur Squamous Epith Cells 0-4 /hpf (0-5) H 10/14/21 17:36 Amorphous Sediment Not Reportable 10/14/21 17:36 Urine Bacteria 4+ /hpf (NONE) H 10/14/21 17:36 Salicylates < 0.3 mg/dL (3-10) L 10/14/21 18:45 Urine Opiates Screen Negative ng/mL (Negative) 10/14/21 17:36 Acetaminophen < 5.0 ug/mL (10-30) L 10/14/21 18:45 Ur Barbiturates Screen Negative ng/mL (Negative) 10/14/21 17:36 Ur Phencyclidine Scrn Negative ng/mL (Negative) 10/14/21 17:36 Ur Amphetamines Screen Negative ng/mL (Negative) 10/14/21 17:36 U Benzodiazepines Scrn Negative ng/mL (Negative) 10/14/21 17:36 Urine Cocaine Screen Negative ng/mL (Negative) 10/14/21 17:36 U Marijuana (THC) Screen Negative ng/mL (Negative) 10/14/21 17:36 Ethyl Alcohol < 10 mg/dL (0-10) 10/14/21 18:45 SARS-CoV-2 Ag (Rapid) Negative (Negative) 10/14/21 17:45 Discharge Plan Discharge Patient Disposition: Transfer to ED Clinical Impression: Depression, Anxiety, Depression with suicidal ideation Condition: Stable Prescriptions: No Action acetaminophen 325 mg Tablet 325 mg PO Q4H PRN (Reason: Pain) 0RF triamcinolone acetonide 0.5 % Cream 1 applic TOPICAL BID PRN (Reason: redness) 0RF nystatin 100,000 unit/gram Ointment 1 applic TOPICAL Q4H PRN (Reason: redness) 0RF magnesium hydroxide [Milk of Magnesia] 400 mg/5 mL Suspension 30 ml PO DAILY PRN (Reason: Constipation) 0RF calcium carbonate 160 mg calcium (400 mg) Tablet,Chewable 320 mg PO Q4H PRN (Reason: Indigestion) 0RF docusate sodium 100 mg Capsule 100 mg PO BID 0RF levothyroxine 200 mcg Tablet 200 mcg PO DAILY 0RF polyethylene glycol 3350 [Miralax] 17 gram/dose Powder 17 g PO BID 0RF loratadine 10 mg Tablet 10 mg PO DAILY 0RF famotidine 20 mg Tablet 20 mg PO DAILY PRN (Reason: Acid Reflux) 0RF lactulose 10 gram/15 mL Solution 15 ml PO DAILY 0RF A&D Plus Pérez See Rx Instructions .ROUTE .COMPLEX 0RF Rx Instructions: PER PACKAGE DIRECTIONS Artificial Tears (polyvin alc) 1.4 % Drops 1 drp OPHTHALMIC (EYE) Q4H PRN (Reason: Dry Eye(S)) 0RF hydroxyzine HCl 50 mg Tablet 50 mg PO BEDTIME 0RF Emma-Tussin 100 mg/5 mL Liquid 200 mg PO Q6H PRN (Reason: Cough) 0RF lamotrigine 25 mg Tablet 25 mg PO DAILY 0RF gabapentin 300 mg Capsule 300 mg PO BEDTIME 0RF gabapentin 100 mg Capsule 100 mg PO BID 0RF Emsam 6 mg/24 hr Patch 24 Hour 1 patch TRANSDERMAL DAILY 0RF Minerin Creme Cream 1 applic TOPICAL DAILY 0RF Biofreeze 0.2-3.5 % Gel 1 applic TOPICAL DAILY PRN (Reason: Pain) 0RF Rx Instructions: rub in gently and completely ondansetron 4 mg Tablet,Disintegrating 4 mg PO Q8H PRN (Reason: Nausea) 0RF Sign Out Sign Out Data: Patient Sign Out occurred on 10/14/21 at 23:02. Patient's care was discussed, and care was transferred from to Ramiro Curran MD. Patient Sign Out occurred on 10/15/21 at 06:30. Patient's care was discussed, and care was transferred from to Paul Avila DO. Coding Level of Care Code ED [employer] Fwd Exam Comprehensive Documented by User: Paul Avila DO 10/16/21 08:21 HPI - General Adult General: Chief complaint: Altered Mental Status Stated complaint: ANXIETY Time Seen by Provider: 10/14/21 17:16 [facility] ED PFSH: Medical History (Updated 10/23/21 @ 00:01 by ) Anxiety Depression Surgical History Status post total left knee replacement Family History Mother Hypertension Social History Smoking and tobacco status: never smoked Alcohol intake: never Marital status: Course Vital Signs: Vital signs: Vital Signs Temperature 98.3 F 10/15/21 22:22 Pulse Rate 85 10/15/21 22:22 Respiratory Rate 20 H 10/15/21 22:22 Blood Pressure 153/96 10/15/21 22:22 Pulse Oximetry 95 10/15/21 22:22 MDM - General Adult Medical Decision Making [70]yo patient w/ hx of depression and anxiety presenting for worsening depression and anxiety. HDS, exam within normal limit Thoughts are linear and organized, and the patient has no AH/VH, or HI. Clinically the patient displays no overt toxidrome; they are well appearing, with low suspicion for toxic ingestion given history and exam. Symptoms unlikely 2/2 anemia, hypothyroidism, infection, or ICH. Workup: CBC, CMP, Lipase, salicylate/tylenol, serum ethanol, UDS, TSH/free T4, EKG, XR chest Lab findings: wnl, UA showed possible UTI, [7:30pm] On reassessment, labs and workup wnl. Patient is hemodynamically stable with no acute medical complaints. Case discussed with psychiatric provider Dr. Gipson at [facility] inpatient care who tells me that given the fact the patient is not able to obtain outpatient psychiatric care and given patient's age and persistent symptoms, he recommended transferring patient to geriatric psych facility. Patient received keflex for UTI and ativan for anxiety in the ED. Patient received nifedipine for elevated blood pressure. Disposition: Xfer to [facility] psych facility Patient was in the signout q. and the chart ended up in my work list. Dr. Aguilera seen the patient and affected all the care I did not see the patient or manage any of her care see Dr. Aguilera notes. Lab Data : 10/14/21 18:45 10/14/21 18:45 Radiology Impressions Chest X-Ray 10/14/21 17:22
[2021-10-14 17:47] VITALS: PULSE 78; RESP 24; TEMP 36.7; O2SAT 94; BMI 44.2
[2021-10-14 17:52] VITALS: BP 183/121; PULSE 75; RESP 24; TEMP 36.8; O2SAT 94
[2021-10-14] MEDS: NIFEdipine 10 mg Capsule 20 MG PO (18:03)
[2021-10-14 18:17] LABS: Amphetamines Screen Urine Negative (Negative); Barbiturates Screen Urine Negative (Negative); Benzodiazepines Screen Urine Negative (Negative); Cocaine Screen Urine Negative (Negative); Opiate Screen Urine Negative (Negative); PCP Screen Urine Negative (Negative); THC Screen Urine Negative (Negative)
[2021-10-14 18:20] LABS: Glucose Urine UA Norm (Normal); Ketones Urine 1+ (Negative); Protein Urine Neg (Negative); Specific Gravity, Urine 1.015 (1.005-1.030); Urine Appearance Clear (CLEAR); Urine Color Yellow (Yellow); pH Urine 6.5 (5-7)
[2021-10-14 18:21] LABS: Add Urine Culture? Yes; Add Urine Microscopic? YES; Bacteria Urine 4+ /hpf; Bilirubin Urine Neg (Negative); Blood Urine Neg (Negative); Leukocyte Esterase Urine Negative (Negative); Nitrate Urine Positive (Negative); RBC Urine 0-4 /hpf (0-2); Squamous Epithelial Cell Urine 0-4 /hpf (0-5); Urobilinogen Urine Norm (Negative); WBC Urine 0-4 /hpf (0-5)
[2021-10-14 18:28] LABS: SARS Covid-2 Antigen Negative (Negative)
[2021-10-14 18:51] LABS: Basophils % 0.3 %; Eosinophils # 0.1 10^3/uL (0.0-0.8); Eosinophils % 0.9 %; Hematocrit 46.1 % (37.0-47.0); Hemoglobin 14.6 g/dL (11.5-15.3); Lymphocytes # 2.2 10^3/uL (0.8-4.8); Lymphocytes % 26.9 %; Mean Corpuscular HGB Conc 31.7 g/dL (30.0-36.0); Mean Corpuscular Hemoglobin 31.6 pg (28.0-34.0); Mean Corpuscular Volume 99.8 fl (81-99); Mean Platelet Volume 10.2 fL (7.4-10.4); Monocytes # 0.8 10^3/uL (0.2-0.9); Monocytes % 9.4 %; Neutrophils # 4.99 10^3/uL (1.8-7.7); Neutrophils % 62.2 %; Nucleated Red Blood Cells % 0 %; Platelet Count 235 10^3/cmm (130-400); Red Blood Count 4.62 10^6/uL (4.1-5.3)
[2021-10-14 19:10] LABS: Alanine Aminotransferase 16 U/L (0-33); Albumin Level 4.1 g/dL (3.5-5.2); Alkaline Phosphatase 110 IU/L (35-105); Anion Gap 15.5 (5-19); Aspartate Amino Transferase 14 U/L (0-32); Blood Urea Nitrogen 12 mg/dL (8-23); Calcium 9.3 mg/dL (8.5-10.5); Carbon Dioxide 22 mmol/L (22-29); Chloride 103 mmol/L (98-107); Globulin 3.4 g/dL (1.3-4.6); Glucose 101 mg/dL (65-115); Lipase 32 U/L (13-60); Osmolality Calculated 284 mOsm/kg (285-295); Potassium 3.5 mmol/L (3.5-5.1); Sodium 137 mmol/L (136-145); Total Bilirubin 0.5 mg/dL (0.15-1.2); Total Protein 7.5 g/dL (6.6-8.7)
[2021-10-14 19:14] LABS: Acetaminophen < 5.0 ug/mL (10-30); Alcohol Level < 10 mg/dL (0-10); Salicylate < 0.3 mg/dL (3-10)
[2021-10-14] MEDS: LORazepam 1 mg Tablet PO (20:00)
[2021-10-14] MEDS: cephALEXin 500 mg Capsule PO (20:00)
[2021-10-14] MEDS: ALPRAZolam 0.5 mg Tablet 1 MG PO (23:33)
[2021-10-15 00:03] VITALS: BP 104/73; PULSE 93; RESP 22; O2SAT 95
--- NOTE | 2021-10-15 00:04 | PC.NURSE ---
patients linen changed and vitals obtained with on difficulties. patient appears anxious. patient instructed of need to wait for xanax to possibly take effect. patinet in no obivous distress. sitter at bedside within eyesight of patient. safety checks done .
[2021-10-15] MEDS: LORazepam 2 mg Tablet PO ×2 (09:48→20:23)
[2021-10-15 13:09] VITALS: BP 153/96; PULSE 81; RESP 22; TEMP 36.7; O2SAT 96
[2021-10-15] MEDS: ALPRAZolam 0.5 mg Tablet 1 MG PO (22:12)
[2021-10-15 22:19] VITALS: BP 153/96; PULSE 85; RESP 20; TEMP 36.8; O2SAT 95
[2021-10-15 22:22] VITALS: BP 153/96; PULSE 85; RESP 20; TEMP 36.8; O2SAT 95
== END 2021-10-15 10:19 ==
PROVIDERS: Emergency Medicine; Emergency Provider Family Medicine
DX: F41.9 Anxiety disorder, unspecified (principal); F32.A Depression, unspecified; R45.851 Suicidal ideations
CPT/HCPCS: 71045; 80053; 80306; 80307; 81001; 83690; 85025; 87077; 87086; 87186; 87426; 93005; 99285

== ENCOUNTER 2022-04-17 09:59 | Outpatient (CLI) | payer MEDICARE, MEDICAID, SELFPAY ==
[2022-04-17 15:41] LABS: Influenza A by IFA positive (Negative); Influenza B by IFA negative (Negative)
== END 2022-04-17 10:00 | disposition home or self-care (01) ==
PROVIDERS: Visit Provider Family Medicine
DX: Z01.89 Encounter for other specified special examinations (principal)
CPT/HCPCS: 87804

== ENCOUNTER → 2024-03-31 08:29 | Outpatient (BNVA) | payer MEDICARE, MEDICAID, SELFPAY | PROVIDERS: Visit Provider Podiatrist Foot & Ankle Surgery | DX: L60.0 Ingrowing nail (principal) | CPT/HCPCS: 99203 ==

== ENCOUNTER → 2024-05-02 11:19 | Outpatient (BNVA) | payer MEDICARE, MEDICAID, SELFPAY | PROVIDERS: Visit Provider Podiatrist Foot & Ankle Surgery | DX: S82.61XA Displaced fracture of lateral malleolus of right fibula, initial encounter for closed fracture (principal); X58.XXXA Exposure to other specified factors, initial encounter; M77.31 Calcaneal spur, right foot; M19.071 Primary osteoarthritis, right ankle and foot; S82.841A Displaced bimalleolar fracture of right lower leg, initial encounter for closed fracture; S90.31XA Contusion of right foot, initial encounter | CPT/HCPCS: 73610; 73630; 99214 ==

== ENCOUNTER → 2024-05-17 15:01 | Outpatient (BNVA) | payer MEDICARE, MEDICAID, SELFPAY | PROVIDERS: Visit Provider Podiatrist Foot & Ankle Surgery | DX: S82.841A Displaced bimalleolar fracture of right lower leg, initial encounter for closed fracture (principal); S90.31XA Contusion of right foot, initial encounter; X58.XXXA Exposure to other specified factors, initial encounter; M79.671 Pain in right foot | CPT/HCPCS: 73610; 99213 ==

== ENCOUNTER → 2024-09-01 08:57 | Outpatient (BNVA) | payer MEDICARE, MEDICAID, SELFPAY | PROVIDERS: PCP Internal Medicine; Visit Provider Podiatrist Foot & Ankle Surgery | DX: L60.3 Nail dystrophy (principal) | CPT/HCPCS: 99214 ==

== ENCOUNTER → 2024-09-15 09:05 | Outpatient (BNVA) | payer MEDICARE, MEDICAID, SELFPAY | PROVIDERS: PCP Internal Medicine; Visit Provider Podiatrist Foot & Ankle Surgery | DX: L60.3 Nail dystrophy (principal); L60.0 Ingrowing nail | CPT/HCPCS: 99213 ==

== ENCOUNTER → 2024-10-13 08:08 | Outpatient (BNVA) | payer MEDICARE, MEDICAID, SELFPAY | PROVIDERS: PCP Internal Medicine; Visit Provider Podiatrist Foot & Ankle Surgery | DX: L60.0 Ingrowing nail (principal); L60.3 Nail dystrophy | CPT/HCPCS: 99213 ==

== ENCOUNTER → 2025-01-03 07:54 | Outpatient (BNVA) | payer MEDICARE, MEDICAID, SELFPAY | PROVIDERS: PCP Internal Medicine; Visit Provider Nurse Practitioner Family | DX: L57.8 Other skin changes due to chronic exposure to nonionizing radiation (principal); L81.4 Other melanin hyperpigmentation; D22.39 Melanocytic nevi of other parts of face; D48.5 Neoplasm of uncertain behavior of skin | CPT/HCPCS: 11102; 99203 ==

== ENCOUNTER → 2025-04-11 07:53 | Outpatient (BNVA) | payer MEDICARE, MEDICAID, SELFPAY | PROVIDERS: PCP Internal Medicine; Visit Provider Nurse Practitioner Family | DX: L21.8 Other seborrheic dermatitis (principal); L57.8 Other skin changes due to chronic exposure to nonionizing radiation; Z08 Encounter for follow-up examination after completed treatment for malignant neoplasm; Z86.007 Personal history of in-situ neoplasm of skin | CPT/HCPCS: 99214 ==